=== PATIENT | female | born 1995 | race Caucasian/White ===

== ENCOUNTER 2021-05-06 13:18 | Inpatient (IN) ==
[2021-05-06] MEDS ORDERED: DINOPROSTONE 10 MG INSERT PV ONE (14:43)
[2021-05-06] MEDS ORDERED: OXYTOCIN 30 UNITS/500 ML BAG IV PRN (14:43)
[2021-05-06 15:11] LABS: Hematocrit (blood only) 35.6 % (37-47); Hemoglobin 11.9 g/dL (12.0-16.0); Mean Corpuscular Hemoglobin 29.7 pg (25-34); Mean Corpuscular Hgb Conc 33.4 g/dL (32-36); Mean Corpuscular Volume 88.8 fL (80-100); Mean Platelet Volume 10.8 fL (7.4-10.4); Platelet Count 264 K/uL (130-400); RDW Coefficient of Variation 14.8 % (11.5-14.5); RDW Standard Deviation 48.3 fL (36.4-46.3); Red Blood Count 4.01 M/uL (4.2-5.4); White Blood Count 13.81 K/uL (4.8-10.8)
[2021-05-06] MEDS ORDERED: LACTATED RINGER'S 1,000 ML IV ONE (15:31)
[2021-05-06 15:37] LABS: Albumin Level 2.9 gm/dl (3.4-5.0); BUN Creatinine Ratio 12.3 (10-20); Calcium 9.6 mg/dl (8.5-10.1); Creatinine Clr Calc Pharmacy 124.1 ml/min; Est GFR (African American) 121.6 ml/min; Est GFR (Non-African American) 104.9 ml/min
[2021-05-06 15:39] LABS: Albumin Globulin Ratio 0.7 (0.9-2); Bilirubin,Total 0.1 mg/dl (0.2-1); Globulin 4.1 gm/dl (2.5-4.0)
[2021-05-06 15:48] LABS: Amphetamines+Metham, Urine Neg (Neg); Barbiturates, Urine Neg (Neg); Benzodiazepine, Urine Neg (Neg); Cocaine, Urine Neg (Neg); MDMA (Ecstacy), Urine Neg (Neg); Methadone, Urine Neg (Neg); Opiate, Urine Neg (Neg); Phencyclidine, Urine Neg (Neg)
--- NOTE | 2021-05-06 15:53 | History & Physical Report ---
Date of Service May 06, 2021 Assessment & Plan (1) Post-term , 40-42 weeks of gestation: (2) Oligohydramnios: Plan: 25-year-old G1, P0 at 40 weeks and 4 days of gestation with oligohydramnios at term, vital signs stable afebrile, heart rate reassuring, GBS negative, Cervix unfavorable, History of drug use during , anxiety, Plan to admit, monitor, labs, cervical ripening with Cervidil, Discussed what to expect from induction of labor and all questions were answered. Admission and Anticipated Discharge Date Admission Date: May 06, 2021 History of Present Illness Chief Complaint: Sent from office Primary Care Provider: Kaden Jaquez MD Patient is a 25-year-old G1, P0 at 40 weeks and 4 days of gestation who was in the office for routine visit for MEGHAN and NST. NST was not meeting criteria for reactivity and she was sent for ultrasound for MEGHAN. it was 4.6 cm which is less than 5th percentile and she was sent here for induction of labor for postdates and oligohydramnios. Patient has no complaints. She denies contractions, leakage of fluid, vaginal bleeding, headaches, change in her vision, nausea vomiting, epigastric or right upper quadrant pain. She reports good movements. Her has been complicated by, 1 obesity during , 2 history of smoking in first trimester, quit completely in December, 3 history of drug use in first trimester, it was meth per patient and quit completely in December, 4 anxiety, on Zoloft GBS is negative, Her boyfriend was exposed to someone with positive COVID-19 test and patient had loss of taste yesterday but resolved today. She was not diagnosed with Covid, she has received 2 doses of vaccines. Allergies Allergy/AdvReac Type Severity Reaction Status Date / Time No Known Allergies Allergy Unverified 06/08/10 13:08 Home Medications Medication Instructions Recorded Confirmed Type ferrous sulfate 325 mg (65 mg 325 mg PO DAILY 05/06/21 05/06/21 History iron) tablet (Iron (ferrous sulfate)) prenat.vits,robert,[id number] 1 tab PO DAILY 05/06/21 05/06/21 History sertraline 50 mg tablet (Zoloft) 50 mg PO DAILY 05/06/21 05/06/21 History Patient History Medical History Anemia (~02/08/21) Anxiety Drug abuse during (~01/01/21) Pt. states she stopped drug use in December 2020. (Meth) Obesity Smoking Pt. states she stopped smiking in December 2020 UTI (urinary tract infection) during (~12/13/20) Surgical History H/O wisdom tooth extraction Family History Aunt Breast cancer Social History Smoking Status: Former smoker Age Started Using Tobacco: 22; Age Quit Using Tobacco: 25; Second Hand Exposure: No; Do You Dip or Chew Tobacco: No; Tobacco Cessation Education Requested by Patient: No Hx Alcohol Use: No Hx Substance Use: Yes Non-Prescribed Medications: Methamphetamines Last Used Substance Other:: 12-10-20 Preferred Language: Turkish Communication Ability: Effective Visual Impairment: No Limitations Hearing Ability: Normal Mitochondrial Disorders Counselor Required: No Beliefs That Will Affect Care: None marital status: Single Current Living Situation: Significant Other Current Living Situation Comment: Lives with boyfriend and cat current occupational status: employed current occupation: [employer] Other Information That Helps Us Care for You: No Feels Safe at Home: Yes Safety Concerns: Feels Safe At This Time caffeine: Yes (Coffee) Dental Care, Regularly: No Seatbelt Use: always Do you think of yourself as: straight/heterosexual Gender Identity: Female Assistive Devices: None [employer] History Remote history of chlamydia about 4 years ago, treated and test of cure was negative many times. No history of genital herpes, gonorrhea, trichomonas. Review of Systems as per Subjective / HPI Physical Exam Constitutional: WD/WN, vitals as above well developed, well nourished and + obese Comfortable not in acute distress Genitourinary: normal external appearance OB Exam Abdomen: + vertex Manual OB Exam: + cervical dilation 1 cm, + cervical effacement 50% and + station -2 OB Exam Monitor Tracing: + external uterine monitor used and + category I Results & Data ([facility]) Vital Signs (Past 12 Hours) Vital Signs Temp Pulse Resp BP 05/06/21 15:43 83 116/64 05/06/21 13:57 36.6 C 20 05/06/21 13:22 36.6 C 101 H 20 140/84 Laboratory Results Lab Results 05/06/21 05/06/21 05/06/21 Range/Units 14:30 14:55 15:02 WBC (4.8-10.8) K/uL RBC (4.2-5.4) M/uL Hgb (12.0-16.0) g/dL Hct (37-47) % MCV (80-100) fL MCH (25-34) pg MCHC (32-36) g/dL RDW Std Deviation (36.4-46.3) fL RDW Coeff of Humberto (11.5-14.5) % Plt Count (130-400) K/uL MPV (7.4-10.4) fL Sodium 138 (136-145) mmol/L Potassium 4.0 (3.5-5.1) mmol/L Chloride 108 H (98-107) mmol/L Carbon Dioxide 23 (21-32) mmol/L Anion Gap 6.0 (3-11) BUN 10 (7-18) mg/dl Creatinine 0.78 (0.6-1.2) mg/dl Est Cr Clr Drug Dosing 124.1 ml/min Est GFR ( Amer) 121.6 ml/min Est GFR (Non-Af Amer) 104.9 ml/min BUN/Creatinine Ratio 12.3 (10-20) Glucose 84 (70-99) mg/dl Calcium 9.6 (8.5-10.1) mg/dl Total Bilirubin 0.1 L (0.2-1) mg/dl AST 14 L (15-37) U/L ALT 21 (12-78) U/L Alkaline Phosphatase 232 H (45-117) U/L Total Protein 7.0 (6.4-8.2) gm/dl Albumin 2.9 L (3.4-5.0) gm/dl Globulin 4.1 H (2.5-4.0) gm/dl Albumin/Globulin Ratio 0.7 L (0.9-2) Urine Opiates Screen Neg (Neg) Ur Methadone, Qual Neg (Neg) Urine Barbiturates Neg (Neg) Ur Phencyclidine (PCP) Neg (Neg) U Amphetamin/Meth Scrn Neg (Neg) MDMA (Ecstasy) Screen Neg (Neg) U Benzodiazepines Scrn Neg (Neg) Ur Cocaine Metabolite Neg (Neg) U Marijuana (THC) Screen Neg (Neg) COVID-19 Eval Order Covid19 at [facility] 05/06/21 Range/Units 15:03 WBC 13.81 H (4.8-10.8) K/uL RBC 4.01 L (4.2-5.4) M/uL Hgb 11.9 L (12.0-16.0) g/dL Hct 35.6 L (37-47) % MCV 88.8 (80-100) fL MCH 29.7 (25-34) pg MCHC 33.4 (32-36) g/dL RDW Std Deviation 48.3 H (36.4-46.3) fL RDW Coeff of Humberto 14.8 H (11.5-14.5) % Plt Count 264 (130-400) K/uL MPV 10.8 H (7.4-10.4) fL Sodium (136-145) mmol/L Potassium (3.5-5.1) mmol/L Chloride (98-107) mmol/L Carbon Dioxide (21-32) mmol/L Anion Gap (3-11) BUN (7-18) mg/dl Creatinine (0.6-1.2) mg/dl Est Cr Clr Drug Dosing ml/min Est GFR ( Amer) ml/min Est GFR (Non-Af Amer) ml/min BUN/Creatinine Ratio (10-20) Glucose (70-99) mg/dl Calcium (8.5-10.1) mg/dl Total Bilirubin (0.2-1) mg/dl AST (15-37) U/L ALT (12-78) U/L Alkaline Phosphatase (45-117) U/L Total Protein (6.4-8.2) gm/dl Albumin (3.4-5.0) gm/dl Globulin (2.5-4.0) gm/dl Albumin/Globulin Ratio (0.9-2) Urine Opiates Screen (Neg) Ur Methadone, Qual (Neg) Urine Barbiturates (Neg) Ur Phencyclidine (PCP) (Neg) U Amphetamin/Meth Scrn (Neg) MDMA (Ecstasy) Screen (Neg) U Benzodiazepines Scrn (Neg) Ur Cocaine Metabolite (Neg) U Marijuana (THC) Screen (Neg) COVID-19 Eval Order
[2021-05-06] MEDS ORDERED: SERTRALINE HCL 50 MG TABLET PO SCH (16:00)
[2021-05-06] MEDS ORDERED: SERTRALINE HCL 50 MG TABLET PO ONE (16:15)
--- NOTE | 2021-05-06 16:22 | Obstetrical Progress Note ---
Date of Service May 06, 2021 Assessment & Plan Admission and Anticipated Discharge Date Admission Date: May 06, 2021 Subjective Cervidil is placed Bed side US: Vertex, MEGHAN 6.1 cm, FHR 140's Continue to monitor closely Results & Data ([facility]) Vital Signs (Past 12 Hours) Vital Signs Temp Pulse Resp BP 05/06/21 15:43 83 116/64 05/06/21 13:57 36.6 C 20 05/06/21 13:22 36.6 C 101 H 20 140/84
[2021-05-06] MEDS: LACTATED RINGER'S 1,000 ML IV PRN (16:34)
[2021-05-06] MEDS ORDERED: ACETAMINOPHEN 1000 MG/100 ML IV IV PRN (22:47)
[2021-05-06] MEDS ORDERED: BUTORPHANOL TARTRATE 1 MG/ML VIAL IV PRN (22:47)
--- NOTE | 2021-05-06 22:47 | Obstetrical Progress Note ---
Date of Service May 06, 2021 Assessment & Plan Admission and Anticipated Discharge Date Admission Date: May 06, 2021 Subjective Patient is reevaluated. She has been feeling crampy in lower abdomen. They are noticeable but not painful. No leakage of fluid or vaginal bleeding. She reports good movements. heart rate category 1, [place] mild irregular uterine activity. Abdomen soft nontender gravid [place] 7 to 8 pounds. Continue with cervical ripening, remove Cervidil at 4:15 AM and then let her eat and take shower and then make a plan. Continue to monitor. Results & Data ([facility]) Vital Signs (Past 12 Hours) Vital Signs Temp Pulse Resp BP 05/06/21 22:00 36.7 C 16 05/06/21 21:59 69 122/58 L 05/06/21 19:11 88 130/67 05/06/21 19:10 36.7 C 93 H 16 132/98 05/06/21 17:28 82 20 122/64 05/06/21 15:43 83 116/64 05/06/21 13:57 36.6 C 101 H 20 140/84 05/06/21 13:22 36.6 C 101 H 20 140/84
[2021-05-07] MEDS: LACTATED RINGER'S 1,000 ML IV PRN ×4 (01:15→11:00)
[2021-05-07] MEDS ORDERED: BUPIVACAINE 0.25% 30 ML VIAL ONE (02:33)
[2021-05-07] MEDS ORDERED: fentaNYL citrate 100 MCG/2 ML VIAL ONE (02:33)
[2021-05-07] MEDS ORDERED: ePHEDrine sulfate 50 MG/ML AMP ONE (02:33)
[2021-05-07] MEDS ORDERED: SODIUM CHLORIDE 0.9% INJ 10 ML VIAL ONE (02:33)
[2021-05-07] MEDS ORDERED: fentaNYL 2MCG/ML ROPIVACAINE 1.25MG/ML 100 ML BAG EPI ONE (02:34)
[2021-05-07] MEDS ORDERED: NALBUPHINE HCL INJ 10 MG/ML AMP IV PRN ×2 (03:05→19:21)
[2021-05-07] MEDS ORDERED: NALOXONE HCL 0.4 MG/1 ML VIAL/CARP IV PRN ×2 (03:05→19:21)
[2021-05-07] MEDS ORDERED: NALOXONE HCL 1 MG in SODIUM CHLORIDE 0.9% 1000ML 1,000 ML IV PRN ×2 (03:05→19:21)
[2021-05-07] MEDS ORDERED: ONDANSETRON INJ 2 MG/ML 2 ML VIAL IV PRN ×2 (03:05→19:21)
[2021-05-07] MEDS ORDERED: diphenhydrAMINE 50 MG/ML VIAL IV PRN ×2 (03:05→19:21)
[2021-05-07] MEDS ORDERED: ePHEDrine sulfate 50 MG/ML AMP IV PRN ×2 (03:05→19:21)
[2021-05-07] MEDS ORDERED: fentaNYL 2MCG/ML ROPIVACAINE 1.25MG/ML 100 ML BAG EPI PRN (03:05)
--- NOTE | 2021-05-07 03:09 | Anesthesiology Consultation ---
Date of Service May 07, 2021 Assessment & Plan Chart Review Chart Review: Patient NOT seen in Pre Admission Testing and Acceptable Risk for Labor Epidural Consults Requested none ASA ASA3 Proposed Anesthesia Anesthesia Type: Labor Epidural and CSE Risk / Benefits Reviewed With: PT / POA / Parent / Guardian, Accepts Plan and Informed Consent Obtained History Height/Weight Height: 5 ft 3 in Weight: 101.151 kg Allergies Allergy/AdvReac Type Severity Reaction Status Date / Time No Known Allergies Allergy Unverified 06/08/10 13:08 Medications Home Medications Medication Instructions Recorded Confirmed Last Taken ferrous sulfate 325 mg (65 mg 325 mg PO DAILY 05/06/21 05/06/21 05/05/21 08:00 iron) tablet (Iron (ferrous sulfate)) prenat.vits,robert,[id number]-[id number] 1 tab PO DAILY 05/06/21 05/06/21 05/05/21 08:00 sertraline 50 mg tablet (Zoloft) 50 mg PO DAILY 05/06/21 05/06/21 05/05/21 08:00 Active Medications Generic Name Dose Route Start Last Admin Trade Name Freq PRN Reason Stop Dose Admin Acetaminophen 1,000 mg 05/06/21 22:47 05/07/21 00:05 Acetaminophen 1000 Mg/100 Ml Iv IV 05/09/21 22:46 1,000 mg Q8 PRN Administration Pain Butorphanol Tartrate 1 mg 05/06/21 22:47 05/07/21 01:43 Butorphanol Tartrate 1 Mg/Ml Vial IV 06/05/21 22:46 1 mg Q3HWA PRN Administration Pain Lactated Ringer's 1,000 mls @ 150 mls/hr 05/06/21 14:43 05/07/21 03:06 Lr IV 05/08/21 14:42 999 mls/hr .[id number] PRN Administration L&D Protocol Protocol NPO Date Last Intake of Fluids: 05/07/21 Time Last Intake of Fluids: 02:00 Date Last Intake of Solids: 05/06/21 Time Last Intake of Solids: 14:00 Past Medical History Medical History Anemia (~02/08/21) Anxiety Drug abuse during (~01/01/21) Pt. states she stopped drug use in December 2020. (Meth) Obesity Smoking Pt. states she stopped smiking in December 2020 UTI (urinary tract infection) during (~12/13/20) Exercise / Class Metabolic Activity II 4-5 Yardwork/Stairs/Walk up hill Past Family History Family History Aunt Breast cancer Past Surgical History Surgical History H/O wisdom tooth extraction Past Anesthesia History No Hx of Anesthesia Complications and No Family Hx of Anesthesia Complications History of PONV No Hx of PONV and No Hx of Motion Sickness Social History Smoking Status: Former smoker Do You Dip or Chew Tobacco: No Hx Alcohol Use: No Hx Substance Use: Yes substance use type: methamphetamine Last Used Substance Other:: 12-10-20 Review of Systems no chest pain or sob Physical Exam Vital Signs Last Vital Signs Temp 36.7 C 05/06/21 22:00 Pulse 89 05/07/21 03:02 Resp 16 05/06/21 22:00 BP 125/79 05/07/21 01:53 Pulse Ox 99 05/07/21 03:02 ENMT Mouth: no TMJ abnormality Thyromental Distance: > or= 3.5 Finger Breadths Mallampati Class: II Neck normal visual inspection Respiratory normal respiratory effort Auscultation: lungs clear to auscultation bilaterally Cardiovascular Rate/Rhythm: regular rate and regular rhythm Musculoskeletal Spine: normal cervical ROM Neurologic moves all extremities Psychiatric Orientation: alert and oriented x 3 Testing Laboratory Results 05/06/21 15:03 05/06/21 15:02
[2021-05-07] MEDS ORDERED: OXYTOCIN 30 UNITS/500 ML BAG IV PRN (08:38)
--- NOTE | 2021-05-07 09:25 | Obstetrical Progress Note ---
Date of Service May 07, 2021 Assessment & Plan Admission and Anticipated Discharge Date Admission Date: May 06, 2021 Subjective Patient is reevaluated. She had hyperstimulation and Cervidil was removed. Received epidural for pain and now comfortable. Vaginal exam, cervix is 4 cm dilated, 80%, -2, central, AROM, small amount of clear fluid was obtained. heart rate category 1, contractions spaced out. Plan to start Pitocin per protocol and continue to monitor. All questions were answered. Results & Data ([facility]) Vital Signs (Past 12 Hours) Vital Signs Temp Pulse Resp BP Pulse Ox 05/07/21 09:21 91 H 91 05/07/21 09:17 94 H 99 05/07/21 09:13 102 H 143/72 H 05/07/21 09:12 105 H 95 05/07/21 09:07 78 98 05/07/21 09:02 80 98 05/07/21 08:58 79 102/57 L 05/07/21 08:57 81 98 05/07/21 08:52 113 H 97 05/07/21 08:47 86 97 05/07/21 08:43 86 93/52 L 05/07/21 08:42 88 97 05/07/21 08:37 87 98 05/07/21 08:32 87 98 05/07/21 08:29 90 135/59 L 05/07/21 08:27 89 98 05/07/21 08:22 89 99 05/07/21 08:17 87 98 05/07/21 08:13 85 112/60 05/07/21 08:12 86 98 05/07/21 08:07 87 98 05/07/21 08:02 89 98 05/07/21 07:58 89 115/60 05/07/21 07:57 90 97 05/07/21 07:52 90 99 05/07/21 07:47 89 98 05/07/21 07:44 87 110/53 L 05/07/21 07:42 97 H 98 05/07/21 07:37 85 99 05/07/21 07:32 95 H 98 05/07/21 07:28 85 133/74 05/07/21 07:27 97 H 98 05/07/21 07:22 96 H 98 05/07/21 07:17 89 98 05/07/21 07:14 86 140/78 11/02/21 07:12 36.8 C 89 18 98 05/07/21 07:07 36.7 C 103 H 18 98 05/07/21 07:02 93 H 98 05/07/21 06:59 83 119/57 L 05/07/21 06:57 91 H 100 05/07/21 06:52 90 99 05/07/21 06:47 88 100 05/07/21 06:43 85 126/57 L 05/07/21 06:42 89 99 05/07/21 06:37 90 99 05/07/21 06:32 92 H 100 05/07/21 06:29 84 118/62 05/07/21 06:27 91 H 99 05/07/21 06:22 90 100 05/07/21 06:17 89 99 05/07/21 06:13 96 H 134/71 05/07/21 06:12 104 H 99 05/07/21 06:07 82 98 05/07/21 06:02 87 98 05/07/21 05:58 82 128/64 05/07/21 05:57 85 98 05/07/21 05:52 87 98 05/07/21 05:47 87 100 05/07/21 05:43 83 129/69 05/07/21 05:42 82 99 05/07/21 05:37 89 99 05/07/21 05:32 86 99 05/07/21 05:29 96 H 137/74 05/07/21 05:27 85 99 05/07/21 05:22 87 98 05/07/21 05:17 89 99 05/07/21 05:13 88 129/65 05/07/21 05:12 87 99 05/07/21 05:07 85 100 05/07/21 05:02 84 100 05/07/21 04:59 85 129/67 05/07/21 04:57 85 99 05/07/21 04:52 88 100 05/07/21 04:47 105 H 99 05/07/21 04:44 73 100/44 L 05/07/21 04:42 77 100 05/07/21 04:37 82 99 05/07/21 04:32 79 99 05/07/21 04:28 79 110/56 L 05/07/21 04:27 78 99 05/07/21 04:22 79 100 05/07/21 04:17 79 100 05/07/21 04:13 80 116/55 L 05/07/21 04:12 95 H 100 05/07/21 04:07 80 98 05/07/21 04:02 80 98 05/07/21 04:00 36.7 C 18 05/07/21 03:57 93 H 98 05/07/21 03:53 86 114/54 L 05/07/21 03:52 83 98 05/07/21 03:47 81 97 05/07/21 03:42 83 112/56 L 98 05/07/21 03:40 92 H 114/54 L 05/07/21 03:38 103 H 112/56 L 05/07/21 03:37 112 H 100 05/07/21 03:36 93 H 108/59 L 05/07/21 03:34 84 103/55 L 05/07/21 03:32 90 97/55 L 98 05/07/21 03:31 77 96/54 L 05/07/21 03:30 73 85/44 L 05/07/21 03:29 71 93/46 L 05/07/21 03:28 71 85/42 L 05/07/21 03:27 70 97 05/07/21 03:26 95 H 96/50 L 05/07/21 03:25 71 107/54 L 05/07/21 03:24 69 109/56 L 05/07/21 03:22 76 130/70 98 05/07/21 03:20 82 132/73 05/07/21 03:18 75 132/74 05/07/21 03:17 81 90 05/07/21 03:14 80 137/77 05/07/21 03:13 89 144/82 H 05/07/21 03:12 95 H 98 05/07/21 03:09 85 137/78 05/07/21 03:07 91 H 98 05/07/21 03:02 89 99 05/07/21 03:00 36.7 C 24 05/07/21 02:59 85 93 05/07/21 02:57 87 98 05/07/21 02:52 80 100 05/07/21 02:47 84 96 05/07/21 02:42 79 96 05/07/21 02:38 83 94 05/07/21 02:37 80 99 05/07/21 02:32 86 99 05/07/21 02:31 98 H 94 05/07/21 02:27 82 95 05/07/21 02:22 72 96 05/07/21 02:17 83 98 05/07/21 02:12 81 97 05/07/21 02:07 75 96 05/07/21 02:06 84 93 05/07/21 02:02 75 95 05/07/21 01:57 80 94 05/07/21 01:53 85 125/79 05/07/21 01:52 77 94 05/07/21 00:15 71 118/54 L 05/06/21 22:00 36.7 C 16 05/06/21 21:59 69 122/58 L
--- NOTE | 2021-05-07 16:40 | Labor Progress Brief Note ---
Date of Service May 07, 2021 Assessment & Plan (1) Oligohydramnios: Plan: Pt fully dilated/+1 station started pushing and experienced decels into the 70 resuscitation including Pitocin d/c. IVH and rt side and nasal oxygen FHR returned to base line will allow passive descent . (2) Post-term , 40-42 weeks of gestation: Admission and Anticipated Discharge Date Admission Date: May 06, 2021 Results & Data ([facility]) Vital Signs (Past 12 Hours) Vital Signs Temp Pulse Resp BP Pulse Ox 05/07/21 16:32 145 H 98 05/07/21 16:28 150 H 120/58 L 92 05/07/21 16:27 92 H 97 05/07/21 16:22 93 H 100 05/07/21 16:17 94 H 98 05/07/21 16:14 86 142/72 H 05/07/21 16:12 93 H 100 05/07/21 16:07 86 98 05/07/21 16:04 94 H 92 05/07/21 16:02 92 H 99 05/07/21 15:59 89 141/75 H 05/07/21 15:58 36.8 C 18 05/07/21 15:57 90 99 05/07/21 15:52 96 H 96 05/07/21 15:47 79 97 05/07/21 15:43 87 111/54 L 05/07/21 15:42 89 96 05/07/21 15:37 82 98 05/07/21 15:32 95 H 96 05/07/21 15:29 85 111/55 L 05/07/21 15:27 84 97 05/07/21 15:22 89 98 05/07/21 15:17 90 98 05/07/21 15:13 83 117/58 L 05/07/21 15:12 87 98 05/07/21 15:07 83 97 05/07/21 15:02 93 H 99 05/07/21 14:59 82 114/56 L 05/07/21 14:57 84 97 05/07/21 14:52 88 97 05/07/21 14:47 88 98 05/07/21 14:43 80 123/74 05/07/21 14:42 82 98 05/07/21 14:37 87 98 05/07/21 14:32 106 H 98 05/07/21 14:29 86 136/70 05/07/21 14:27 89 97 05/07/21 14:22 96 H 99 05/07/21 14:17 101 H 98 05/07/21 14:13 83 131/67 05/07/21 14:12 82 99 05/07/21 14:07 102 H 99 05/07/21 14:02 85 98 05/07/21 13:59 90 134/70 05/07/21 13:58 36.9 C 18 05/07/21 13:57 88 98 05/07/21 13:52 99 H 98 05/07/21 13:50 94 H 92 05/07/21 13:47 89 98 05/07/21 13:43 90 113/58 L 05/07/21 13:42 90 98 05/07/21 13:39 109 H 93 05/07/21 13:37 88 97 05/07/21 13:32 88 97 05/07/21 13:29 86 124/64 05/07/21 13:27 88 97 05/07/21 13:22 86 97 05/07/21 13:17 92 H 97 05/07/21 13:14 88 130/64 05/07/21 13:12 90 97 05/07/21 13:07 90 97 05/07/21 13:02 90 96 05/07/21 12:59 90 128/65 05/07/21 12:57 89 97 05/07/21 12:52 90 97 05/07/21 12:47 91 H 97 05/07/21 12:43 92 H 126/61 05/07/21 12:42 92 H 97 05/07/21 12:37 91 H 97 05/07/21 12:32 89 97 05/07/21 12:28 115 H 130/62 05/07/21 12:27 90 97 05/07/21 12:22 91 H 97 05/07/21 12:17 91 H 98 05/07/21 12:14 90 130/57 L 05/07/21 12:12 85 97 05/07/21 12:07 90 97 05/07/21 12:04 101 H 94 05/07/21 12:02 81 97 05/07/21 12:01 36.8 C 18 05/07/21 11:58 86 101/59 L 05/07/21 11:57 83 97 05/07/21 11:52 83 97 05/07/21 11:47 81 96 05/07/21 11:43 85 100/58 L 05/07/21 11:42 83 97 05/07/21 11:37 76 97 05/07/21 11:32 82 97 05/07/21 11:29 78 103/59 L 05/07/21 11:27 81 97 05/07/21 11:22 81 98 05/07/21 11:17 77 97 05/07/21 11:13 82 126/59 L 05/07/21 11:12 74 98 05/07/21 11:07 82 97 05/07/21 11:02 82 98 05/07/21 10:58 83 123/67 05/07/21 10:57 87 99 05/07/21 10:52 89 99 05/07/21 10:47 88 99 05/07/21 10:44 82 107/55 L 05/07/21 10:42 88 98 05/07/21 10:37 83 98 05/07/21 10:32 82 98 05/07/21 10:28 81 107/55 L 05/07/21 10:27 85 98 05/07/21 10:22 83 97 05/07/21 10:17 80 98 05/07/21 10:14 80 105/52 L 05/07/21 10:12 83 99 05/07/21 10:07 90 99 05/07/21 10:02 85 99 05/07/21 09:59 36.9 C 82 18 108/57 L 05/07/21 09:57 106 H 97 05/07/21 09:52 87 98 05/07/21 09:47 88 98 05/07/21 09:43 81 132/66 05/07/21 09:42 92 H 99 05/07/21 09:37 94 H 98 05/07/21 09:32 90 98 05/07/21 09:28 90 126/62 05/07/21 09:27 86 98 05/07/21 09:22 83 97 05/07/21 09:21 91 H 91 05/07/21 09:17 94 H 99 05/07/21 09:13 102 H 143/72 H 05/07/21 09:12 105 H 95 05/07/21 09:07 78 98 05/07/21 09:02 80 98 05/07/21 08:58 79 102/57 L 05/07/21 08:57 81 98 05/07/21 08:52 113 H 97 05/07/21 08:47 86 97 05/07/21 08:43 86 93/52 L 05/07/21 08:42 88 97 05/07/21 08:37 87 98 05/07/21 08:32 87 98 05/07/21 08:29 90 135/59 L 05/07/21 08:27 89 98 05/07/21 08:22 89 99 05/07/21 08:17 87 98 05/07/21 08:13 85 112/60 05/07/21 08:12 86 98 05/07/21 08:07 87 98 05/07/21 08:02 89 98 05/07/21 07:58 89 115/60 05/07/21 07:57 90 97 05/07/21 07:52 90 99 05/07/21 07:47 89 98 05/07/21 07:44 87 110/53 L 05/07/21 07:42 97 H 98 05/07/21 07:37 85 99 05/07/21 07:32 95 H 98 05/07/21 07:28 85 133/74 05/07/21 07:27 97 H 98 05/07/21 07:22 96 H 98 05/07/21 07:17 89 98 05/07/21 07:14 86 140/78 05/07/21 07:12 36.8 C 89 18 98 05/07/21 07:07 36.7 C 103 H 18 98 05/07/21 07:02 93 H 98 05/07/21 06:59 83 119/57 L 05/07/21 06:57 91 H 100 05/07/21 06:52 90 99 05/07/21 06:47 88 100 05/07/21 06:43 85 126/57 L 05/07/21 06:42 89 99 05/07/21 06:37 90 99 05/07/21 06:32 92 H 100 05/07/21 06:29 84 118/62 05/07/21 06:27 91 H 99 05/07/21 06:22 90 100 05/07/21 06:17 89 99 05/07/21 06:13 96 H 134/71 05/07/21 06:12 104 H 99 05/07/21 06:07 82 98 05/07/21 06:02 87 98 05/07/21 05:58 82 128/64 05/07/21 05:57 85 98 05/07/21 05:52 87 98 05/07/21 05:47 87 100 05/07/21 05:43 83 129/69 05/07/21 05:42 82 99 05/07/21 05:37 89 99 05/07/21 05:32 86 99 05/07/21 05:29 96 H 137/74 05/07/21 05:27 85 99 05/07/21 05:22 87 98 05/07/21 05:17 89 99 05/07/21 05:13 88 129/65 05/07/21 05:12 87 99 05/07/21 05:07 85 100 05/07/21 05:02 84 100 05/07/21 04:59 85 129/67 05/07/21 04:57 85 99 05/07/21 04:52 88 100 05/07/21 04:47 105 H 99 05/07/21 04:44 73 100/44 L 05/07/21 04:42 77 100
--- NOTE | 2021-05-07 18:13 | Labor Progress Brief Note ---
Date of Service May 07, 2021 Assessment & Plan (1) Oligohydramnios: Plan: Pt reevaluated late decels with pushing tachycardia persist No change in station with pushing discussed above finding with pt Recommend c/sec pt is agreeable to c/sec Admission and Anticipated Discharge Date Admission Date: May 06, 2021 Results & Data ([facility]) Vital Signs (Past 12 Hours) Vital Signs Temp Pulse Resp BP Pulse Ox 05/07/21 18:07 84 98 05/07/21 18:02 99 H 99 05/07/21 18:00 109 H 156/119 H 05/07/21 17:59 84 86 L 05/07/21 17:57 82 99 05/07/21 17:53 94 H 89 L 05/07/21 17:52 93 H 98 05/07/21 17:47 88 97 05/07/21 17:43 83 122/56 L 05/07/21 17:42 91 H 98 05/07/21 17:37 84 96 05/07/21 17:35 36.9 C 18 05/07/21 17:32 94 H 99 05/07/21 17:28 83 137/63 05/07/21 17:27 88 99 05/07/21 17:22 86 97 05/07/21 17:17 90 97 05/07/21 17:14 88 130/71 05/07/21 17:12 82 100 05/07/21 17:07 84 100 05/07/21 17:02 90 100 05/07/21 16:58 86 127/69 05/07/21 16:57 85 100 05/07/21 16:52 88 100 05/07/21 16:47 90 100 05/07/21 16:43 90 133/77 05/07/21 16:42 89 100 05/07/21 16:37 87 100 05/07/21 16:32 145 H 98 05/07/21 16:28 150 H 120/58 L 92 05/07/21 16:27 92 H 97 05/07/21 16:22 93 H 100 05/07/21 16:17 94 H 98 05/07/21 16:14 86 142/72 H 05/07/21 16:12 93 H 100 05/07/21 16:07 86 98 05/07/21 16:04 94 H 92 05/07/21 16:02 92 H 99 05/07/21 15:59 89 141/75 H 05/07/21 15:58 36.8 C 18 05/07/21 15:57 90 99 05/07/21 15:52 96 H 96 05/07/21 15:47 79 97 05/07/21 15:43 87 111/54 L 05/07/21 15:42 89 96 05/07/21 15:37 82 98 05/07/21 15:32 95 H 96 05/07/21 15:29 85 111/55 L 05/07/21 15:27 84 97 05/07/21 15:22 89 98 05/07/21 15:17 90 98 05/07/21 15:13 83 117/58 L 05/07/21 15:12 87 98 05/07/21 15:07 83 97 05/07/21 15:02 93 H 99 05/07/21 14:59 82 114/56 L 05/07/21 14:57 84 97 05/07/21 14:52 88 97 05/07/21 14:47 88 98 05/07/21 14:43 80 123/74 05/07/21 14:42 82 98 05/07/21 14:37 87 98 05/07/21 14:32 106 H 98 05/07/21 14:29 86 136/70 05/07/21 14:27 89 97 05/07/21 14:22 96 H 99 05/07/21 14:17 101 H 98 05/07/21 14:13 83 131/67 05/07/21 14:12 82 99 05/07/21 14:07 102 H 99 05/07/21 14:02 85 98 05/07/21 13:59 90 134/70 05/07/21 13:58 36.9 C 18 05/07/21 13:57 88 98 05/07/21 13:52 99 H 98 05/07/21 13:50 94 H 92 05/07/21 13:47 89 98 05/07/21 13:43 90 113/58 L 05/07/21 13:42 90 98 05/07/21 13:39 109 H 93 05/07/21 13:37 88 97 05/07/21 13:32 88 97 05/07/21 13:29 86 124/64 05/07/21 13:27 88 97 05/07/21 13:22 86 97 05/07/21 13:17 92 H 97 05/07/21 13:14 88 130/64 05/07/21 13:12 90 97 05/07/21 13:07 90 97 05/07/21 13:02 90 96 05/07/21 12:59 90 128/65 05/07/21 12:57 89 97 05/07/21 12:52 90 97 05/07/21 12:47 91 H 97 05/07/21 12:43 92 H 126/61 05/07/21 12:42 92 H 97 05/07/21 12:37 91 H 97 05/07/21 12:32 89 97 05/07/21 12:28 115 H 130/62 05/07/21 12:27 90 97 05/07/21 12:22 91 H 97 05/07/21 12:17 91 H 98 05/07/21 12:14 90 130/57 L 05/07/21 12:12 85 97 05/07/21 12:07 90 97 05/07/21 12:04 101 H 94 05/07/21 12:02 81 97 05/07/21 12:01 36.8 C 18 05/07/21 11:58 86 101/59 L 05/07/21 11:57 83 97 05/07/21 11:52 83 97 05/07/21 11:47 81 96 05/07/21 11:43 85 100/58 L 05/07/21 11:42 83 97 05/07/21 11:37 76 97 05/07/21 11:32 82 97 05/07/21 11:29 78 103/59 L 05/07/21 11:27 81 97 05/07/21 11:22 81 98 05/07/21 11:17 77 97 05/07/21 11:13 82 126/59 L 05/07/21 11:12 74 98 05/07/21 11:07 82 97 05/07/21 11:02 82 98 05/07/21 10:58 83 123/67 05/07/21 10:57 87 99 05/07/21 10:52 89 99 05/07/21 10:47 88 99 05/07/21 10:44 82 107/55 L 05/07/21 10:42 88 98 05/07/21 10:37 83 98 05/07/21 10:32 82 98 05/07/21 10:28 81 107/55 L 05/07/21 10:27 85 98 05/07/21 10:22 83 97 05/07/21 10:17 80 98 05/07/21 10:14 80 105/52 L 05/07/21 10:12 83 99 05/07/21 10:07 90 99 05/07/21 10:02 85 99 05/07/21 09:59 36.9 C 82 18 108/57 L 05/07/21 09:57 106 H 97 05/07/21 09:52 87 98 05/07/21 09:47 88 98 05/07/21 09:43 81 132/66 05/07/21 09:42 92 H 99 05/07/21 09:37 94 H 98 05/07/21 09:32 90 98 05/07/21 09:28 90 126/62 05/07/21 09:27 86 98 05/07/21 09:22 83 97 05/07/21 09:21 91 H 91 05/07/21 09:17 94 H 99 05/07/21 09:13 102 H 143/72 H 05/07/21 09:12 105 H 95 05/07/21 09:07 78 98 05/07/21 09:02 80 98 05/07/21 08:58 79 102/57 L 05/07/21 08:57 81 98 05/07/21 08:52 113 H 97 05/07/21 08:47 86 97 05/07/21 08:43 86 93/52 L 05/07/21 08:42 88 97 05/07/21 08:37 87 98 05/07/21 08:32 87 98 05/07/21 08:29 90 135/59 L 05/07/21 08:27 89 98 05/07/21 08:22 89 99 05/07/21 08:17 87 98 05/07/21 08:13 85 112/60 05/07/21 08:12 86 98 05/07/21 08:07 87 98 05/07/21 08:02 89 98 05/07/21 07:58 89 115/60 05/07/21 07:57 90 97 05/07/21 07:52 90 99 05/07/21 07:47 89 98 05/07/21 07:44 87 110/53 L 05/07/21 07:42 97 H 98 05/07/21 07:37 85 99 05/07/21 07:32 95 H 98 05/07/21 07:28 85 133/74 05/07/21 07:27 97 H 98 05/07/21 07:22 96 H 98 05/07/21 07:17 89 98 05/07/21 07:14 86 140/78 05/07/21 07:12 36.8 C 89 18 98 05/07/21 07:07 36.7 C 103 H 18 98 05/07/21 07:02 93 H 98 05/07/21 06:59 83 119/57 L 05/07/21 06:57 91 H 100 05/07/21 06:52 90 99 05/07/21 06:47 88 100 05/07/21 06:43 85 126/57 L 05/07/21 06:42 89 99 05/07/21 06:37 90 99 05/07/21 06:32 92 H 100 05/07/21 06:29 84 118/62 05/07/21 06:27 91 H 99 05/07/21 06:22 90 100 05/07/21 06:17 89 99 05/07/21 06:13 96 H 134/71 05/07/21 06:12 104 H 99
--- NOTE | 2021-05-07 18:18 | History & Physical Bridge Note ---
Date of Service May 07, 2021 History & Physical Bridge Note I have examined the patient, reviewed the History & Physical and in the interval since the performance of the History & Physical I have noted the following changes of clinical significance: no changes noted
[2021-05-07] MEDS ORDERED: CITRIC ACID/SODIUM CITRATE 15 ML UDC ONE (18:21)
[2021-05-07] MEDS ORDERED: LACTATED RINGER'S 1,000 ML IV SCH ×3 (18:30→20:15)
[2021-05-07] MEDS ORDERED: ceFAZolin 2000MG 2,000 MG/15 ML SYR IV STA (18:32)
[2021-05-07] MEDS ORDERED: CITRIC ACID/SODIUM CITRATE 15 ML UDC PO STA (18:33)
[2021-05-07] MEDS ORDERED: MoRPHine SULFATE PF 1 MG/ML 10 ML AMP/VIAL ONE (19:13)
[2021-05-07] MEDS ORDERED: OXYTOCIN 10 UNITS/ML VIAL ONE (19:14)
[2021-05-07] MEDS ORDERED: MoRPHine SULFATE PF 1 MG/ML 10 ML AMP/VIAL INT SPINAL ONE (19:21)
[2021-05-07] MEDS ORDERED: HYDROmorphone INJ 0.5 MG/0.5 ML SYR IV PRN (19:21)
[2021-05-07] MEDS ORDERED: MEPERIDINE HCL 25 MG/ML CARP/VIAL IV PRN (19:21)
[2021-05-07] MEDS ORDERED: KETOROLAC 30 MG/ML VIAL IV PRN (19:21)
[2021-05-07] MEDS ORDERED: METOCLOPRAMIDE HCL 10 MG in SODIUM CHLORIDE 0.9% 50 ML IV PRN (19:21)
[2021-05-07] MEDS ORDERED: LACTATED RINGER'S 500 ML IV PRN (19:21)
[2021-05-07] MEDS ORDERED: PROMETHAZINE HCL 12.5 MG in SODIUM CHLORIDE 0.9% 50 ML IV PRN (19:21)
[2021-05-07] MEDS ORDERED: NALOXONE HCL 0.08 MG in SYRINGE 1.8 ML IV PRN (19:21)
[2021-05-07] MEDS ORDERED: MoRPHine SULFATE 2 MG/ML CARP IV PRN (19:21)
[2021-05-07] MEDS ORDERED: SODIUM CHLORIDE 0.9% 1000ML 1,000 ML IV SCH (19:30)
[2021-05-07] MEDS ORDERED: NO NARCOTICS OR SEDATIVES SCH (19:30)
[2021-05-07] MEDS ORDERED: DC INTRASPINAL MORPHINE SCH (19:30)
[2021-05-07 19:41] LABS: Base Excess Cord Arterial Bld -3.8 mEq/L (-9-1.8); CO2 Cord Arterial Blood 60 mmHg (39.1-73.5); HCO3 Cord Arterial Blood 25 mmol/L (19.7-28.5); pH Cord Arterial Blood 7.24 (7.1-7.38)
[2021-05-07 19:44] LABS: Base Excess Cord Venous Blood -2.4 mEq/L (-7.7-1.9); Cord Venous Blood HCO3 23 mmol/L (18.4-26.8); Cord Venous Blood PCO2 44 mmHg (30.4-57.2); Cord Venous Blood PO2 20 mmHg (14.1-43.3); Cord Venous Blood pH 7.34 (7.20-7.44); O2 Saturation Cord Venous Bld < 60.0 % (<68)
[2021-05-07 19:49] LABS: Oxygen Sat Cord Arterial Blood < 60.0 % (<60)
[2021-05-07 19:51] LABS: PO2 Cord Arterial Blood < 10 mmHg (4.1-31.7)
[2021-05-07] MEDS ORDERED: miSOPROStoL 100 MCG TAB ONE (19:51)
[2021-05-07] MEDS ORDERED: LIDOCAINE 2%/EPINEPHRINE 1:200,000 20 ML SDV ONE (19:59)
[2021-05-07] MEDS ORDERED: MAGNESIUM HYDROXIDE SUSP 30 ML UDC PO PRN (20:14)
[2021-05-07] MEDS ORDERED: SENNA 8.6 MG TAB PO PRN (20:14)
[2021-05-07] MEDS ORDERED: SUPERCREAM 0.870% 15 GM JAR EXT PRN (20:14)
[2021-05-07] MEDS ORDERED: BENZOCAINE 20% AER SPR 82.5 GM CAN EXT PRN (20:14)
[2021-05-07] MEDS ORDERED: DIPHTHERIA/TETANUS/PERTUSSIS 0.5 ML SYR/VIAL IM ONE (20:14)
[2021-05-07] MEDS ORDERED: HYDROCORTISONE ACETATE 25 MG SUPP PR PRN (20:14)
[2021-05-07] MEDS: OXYTOCIN 20 UNITS in LACTATED RINGER'S 1,000 ML IV SCH (20:56)
[2021-05-07] MEDS: DOCUSATE SODIUM 100 MG CAP PO SCH (22:39)
[2021-05-07] MEDS: SIMETHICONE 80 MG CHEW PO SCH (22:39)
--- NOTE | 2021-05-07 23:21 | Anesthesia Procedure Note ---
Date of Service May 07, 2021 Anesthesia Post Epidural Note Vital Signs Vital Signs: Temp Pulse Resp BP Pulse Ox 37.3 C 86 18 140/82 98 05/07/21 22:30 05/07/21 22:30 05/07/21 22:30 05/07/21 22:30 05/07/21 22:30 Pain Intensity Right Lower Abdomen: Pain Intensity: 7 Lower Abdomen: Pain Intensity: 2 Notes Mental Status: alert / awake / arousable Nausea / Vomiting: adequately controlled Pain: adequately controlled Airway Patency, RR, SpO2: stable & adequate BP & HR: stable & adequate Hydration State: stable & adequate Neuraxial Anesthesia: was administered and sensory block is resolving Anesthetic Complications: no major complications apparent and Pt Satisfied with anesthetic care Epidural: Removed without complications and With tip intact
--- NOTE | 2021-05-07 23:21 | Anesthesiology Progress Note ---
Date of Service May 07, 2021 Anesthesia Post Procedure Vital Signs Vital Signs: Temp Pulse Pulse Resp BP BP Pulse Ox 05/07/21 22:30 37.3 C 86 18 140/82 98 05/07/21 22:24 93 H 98 05/07/21 22:19 93 H 97 05/07/21 22:16 90 115/72 05/07/21 22:14 92 H 97 05/07/21 22:09 94 H 97 05/07/21 22:06 106 H 98/56 L 05/07/21 22:05 20 05/07/21 22:04 91 H 96 05/07/21 21:59 91 H 96 05/07/21 21:56 101 H 111/58 L 05/07/21 21:54 94 H 96 05/07/21 21:49 99 H 95 05/07/21 21:46 93 H 112/54 L 05/07/21 21:44 88 95 05/07/21 21:39 92 H 96 05/07/21 21:37 94 H 113/53 L 05/07/21 21:35 20 05/07/21 21:34 100 H 96 05/07/21 21:29 98 H 96 05/07/21 21:24 93 H 96 05/07/21 21:19 107 H 96 05/07/21 21:14 101 H 96 05/07/21 21:09 93 H 96 05/07/21 21:06 94 H 137/63 05/07/21 21:05 20 05/07/21 21:04 95 H 95 05/07/21 20:59 94 H 97 05/07/21 20:56 89 140/70 05/07/21 20:55 20 05/07/21 20:54 94 H 97 05/07/21 20:49 89 98 05/07/21 20:46 86 136/65 05/07/21 20:45 18 05/07/21 20:44 96 H 98 05/07/21 20:39 95 H 98 05/07/21 20:36 100 H 129/62 05/07/21 20:35 20 05/07/21 20:34 101 H 96 05/07/21 20:29 94 H 98 05/07/21 20:26 97 H 125/60 05/07/21 20:25 20 05/07/21 20:24 96 H 100 05/07/21 20:19 95 H 100 05/07/21 20:16 99 H 127/59 L 05/07/21 20:15 20 05/07/21 20:14 100 H 95 05/07/21 20:09 90 97 05/07/21 20:05 37.0 C 89 18 131/62 05/07/21 20:04 85 95 05/07/21 18:39 89 138/74 05/07/21 18:28 97 H 138/73 05/07/21 18:22 89 100 05/07/21 18:17 89 100 05/07/21 18:13 81 135/63 05/07/21 18:12 86 100 05/07/21 18:07 84 98 05/07/21 18:02 99 H 99 05/07/21 18:00 109 H 156/119 H 05/07/21 17:59 84 86 L 05/07/21 17:57 82 99 05/07/21 17:53 94 H 89 L 05/07/21 17:52 93 H 98 05/07/21 17:47 88 97 05/07/21 17:43 83 122/56 L 05/07/21 17:42 91 H 98 05/07/21 17:37 84 96 05/07/21 17:35 36.9 C 18 05/07/21 17:32 94 H 99 05/07/21 17:28 83 137/63 05/07/21 17:27 88 99 05/07/21 17:22 86 97 05/07/21 17:17 90 97 05/07/21 17:14 88 130/71 05/07/21 17:12 82 100 05/07/21 17:07 84 100 05/07/21 17:02 90 100 05/07/21 16:58 86 127/69 05/07/21 16:57 85 100 05/07/21 16:52 88 100 05/07/21 16:47 90 100 05/07/21 16:43 90 133/77 05/07/21 16:42 89 100 05/07/21 16:37 87 100 05/07/21 16:32 145 H 98 05/07/21 16:28 150 H 120/58 L 92 05/07/21 16:27 92 H 97 05/07/21 16:22 93 H 100 05/07/21 16:17 94 H 98 05/07/21 16:14 86 142/72 H 05/07/21 16:12 93 H 100 05/07/21 16:07 86 98 05/07/21 16:04 94 H 92 05/07/21 16:02 92 H 99 05/07/21 15:59 89 141/75 H 05/07/21 15:58 36.8 C 18 05/07/21 15:57 90 99 05/07/21 15:52 96 H 96 05/07/21 15:47 79 97 05/07/21 15:43 87 111/54 L 05/07/21 15:42 89 96 05/07/21 15:37 82 98 05/07/21 15:32 95 H 96 05/07/21 15:29 85 111/55 L 05/07/21 15:27 84 97 05/07/21 15:22 89 98 05/07/21 15:17 90 98 05/07/21 15:13 83 117/58 L 05/07/21 15:12 87 98 05/07/21 15:07 83 97 05/07/21 15:02 93 H 99 05/07/21 14:59 82 114/56 L 05/07/21 14:57 84 97 05/07/21 14:52 88 97 05/07/21 14:47 88 98 05/07/21 14:43 80 123/74 05/07/21 14:42 82 98 05/07/21 14:37 87 98 05/07/21 14:32 106 H 98 05/07/21 14:29 86 136/70 05/07/21 14:27 89 97 05/07/21 14:22 96 H 99 05/07/21 14:17 101 H 98 05/07/21 14:13 83 131/67 05/07/21 14:12 82 99 05/07/21 14:07 102 H 99 05/07/21 14:02 85 98 05/07/21 13:59 90 134/70 05/07/21 13:58 36.9 C 18 05/07/21 13:57 88 98 05/07/21 13:52 99 H 98 05/07/21 13:50 94 H 92 05/07/21 13:47 89 98 05/07/21 13:43 90 113/58 L 05/07/21 13:42 90 98 05/07/21 13:39 109 H 93 05/07/21 13:37 88 97 05/07/21 13:32 88 97 05/07/21 13:29 86 124/64 05/07/21 13:27 88 97 05/07/21 13:22 86 97 05/07/21 13:17 92 H 97 05/07/21 13:14 88 130/64 05/07/21 13:12 90 97 05/07/21 13:07 90 97 05/07/21 13:02 90 96 05/07/21 12:59 90 128/65 05/07/21 12:57 89 97 05/07/21 12:52 90 97 05/07/21 12:47 91 H 97 05/07/21 12:43 92 H 126/61 05/07/21 12:42 92 H 97 05/07/21 12:37 91 H 97 05/07/21 12:32 89 97 05/07/21 12:28 115 H 130/62 05/07/21 12:27 90 97 05/07/21 12:22 91 H 97 05/07/21 12:17 91 H 98 05/07/21 12:14 90 130/57 L 05/07/21 12:12 85 97 05/07/21 12:07 90 97 05/07/21 12:04 101 H 94 05/07/21 12:02 81 97 05/07/21 12:01 36.8 C 18 05/07/21 11:58 86 101/59 L 05/07/21 11:57 83 97 05/07/21 11:52 83 97 05/07/21 11:47 81 96 05/07/21 11:43 85 100/58 L 05/07/21 11:42 83 97 05/07/21 11:37 76 97 05/07/21 11:32 82 97 05/07/21 11:29 78 103/59 L 05/07/21 11:27 81 97 05/07/21 11:22 81 98 05/07/21 11:17 77 97 05/07/21 11:13 82 126/59 L 05/07/21 11:12 74 98 05/07/21 11:07 82 97 05/07/21 11:02 82 98 05/07/21 10:58 83 123/67 05/07/21 10:57 87 99 05/07/21 10:52 89 99 05/07/21 10:47 88 99 05/07/21 10:44 82 107/55 L 05/07/21 10:42 88 98 05/07/21 10:37 83 98 05/07/21 10:32 82 98 05/07/21 10:28 81 107/55 L 05/07/21 10:27 85 98 05/07/21 10:22 83 97 05/07/21 10:17 80 98 05/07/21 10:14 80 105/52 L 05/07/21 10:12 83 99 05/07/21 10:07 90 99 05/07/21 10:02 85 99 05/07/21 09:59 36.9 C 82 18 108/57 L 05/07/21 09:57 106 H 97 05/07/21 09:52 87 98 05/07/21 09:47 88 98 05/07/21 09:43 81 132/66 05/07/21 09:42 92 H 99 05/07/21 09:37 94 H 98 05/07/21 09:32 90 98 05/07/21 09:28 90 126/62 05/07/21 09:27 86 98 05/07/21 09:22 83 97 05/07/21 09:21 91 H 91 05/07/21 09:17 94 H 99 05/07/21 09:13 102 H 143/72 H 05/07/21 09:12 105 H 95 05/07/21 09:07 78 98 05/07/21 09:02 80 98 05/07/21 08:58 79 102/57 L 05/07/21 08:57 81 98 05/07/21 08:52 113 H 97 05/07/21 08:47 86 97 05/07/21 08:43 86 93/52 L 05/07/21 08:42 88 97 05/07/21 08:37 87 98 05/07/21 08:32 87 98 05/07/21 08:29 90 135/59 L 05/07/21 08:27 89 98 05/07/21 08:22 89 99 05/07/21 08:17 87 98 05/07/21 08:13 85 112/60 05/07/21 08:12 86 98 05/07/21 08:07 87 98 05/07/21 08:02 89 98 05/07/21 07:58 89 115/60 05/07/21 07:57 90 97 05/07/21 07:52 90 99 05/07/21 07:47 89 98 05/07/21 07:44 87 110/53 L 05/07/21 07:42 97 H 98 05/07/21 07:37 85 99 05/07/21 07:32 95 H 98 05/07/21 07:28 85 133/74 05/07/21 07:27 97 H 98 05/07/21 07:22 96 H 98 05/07/21 07:17 89 98 05/07/21 07:14 86 140/78 05/07/21 07:12 36.8 C 89 18 98 05/07/21 07:07 36.7 C 103 H 18 98 05/07/21 07:02 93 H 98 05/07/21 06:59 83 119/57 L 05/07/21 06:57 91 H 100 05/07/21 06:52 90 99 05/07/21 06:47 88 100 05/07/21 06:43 85 126/57 L 05/07/21 06:42 89 99 05/07/21 06:37 90 99 05/07/21 06:32 92 H 100 05/07/21 06:29 84 118/62 05/07/21 06:27 91 H 99 05/07/21 06:22 90 100 05/07/21 06:17 89 99 05/07/21 06:13 96 H 134/71 05/07/21 06:12 104 H 99 05/07/21 06:07 82 98 05/07/21 06:02 87 98 05/07/21 05:58 82 128/64 05/07/21 05:57 85 98 05/07/21 05:52 87 98 05/07/21 05:47 87 100 05/07/21 05:43 83 129/69 05/07/21 05:42 82 99 05/07/21 05:37 89 99 05/07/21 05:32 86 99 05/07/21 05:29 96 H 137/74 05/07/21 05:27 85 99 05/07/21 05:22 87 98 05/07/21 05:17 89 99 05/07/21 05:13 88 129/65 05/07/21 05:12 87 99 05/07/21 05:07 85 100 05/07/21 05:02 84 100 05/07/21 04:59 85 129/67 05/07/21 04:57 85 99 05/07/21 04:52 88 100 05/07/21 04:47 105 H 99 05/07/21 04:44 73 100/44 L 05/07/21 04:42 77 100 05/07/21 04:37 82 99 05/07/21 04:32 79 99 05/07/21 04:28 79 110/56 L 05/07/21 04:27 78 99 05/07/21 04:22 79 100 05/07/21 04:17 79 100 05/07/21 04:13 80 116/55 L 05/07/21 04:12 95 H 100 05/07/21 04:07 80 98 05/07/21 04:02 80 98 05/07/21 04:00 36.7 C 18 05/07/21 03:57 93 H 98 05/07/21 03:53 86 114/54 L 05/07/21 03:52 83 98 05/07/21 03:47 81 97 05/07/21 03:42 83 112/56 L 98 05/07/21 03:40 92 H 114/54 L 05/07/21 03:38 103 H 112/56 L 05/07/21 03:37 112 H 100 05/07/21 03:36 93 H 108/59 L 05/07/21 03:34 84 103/55 L 05/07/21 03:32 90 97/55 L 98 05/07/21 03:31 77 96/54 L 05/07/21 03:30 73 85/44 L 05/07/21 03:29 71 93/46 L 05/07/21 03:28 71 85/42 L 05/07/21 03:27 70 97 05/07/21 03:26 95 H 96/50 L 05/07/21 03:25 71 107/54 L 05/07/21 03:24 69 109/56 L 05/07/21 03:22 76 130/70 98 05/07/21 03:20 82 132/73 05/07/21 03:18 75 132/74 05/07/21 03:17 81 90 05/07/21 03:14 80 137/77 05/07/21 03:13 89 144/82 H 05/07/21 03:12 95 H 98 05/07/21 03:09 85 137/78 05/07/21 03:07 91 H 98 05/07/21 03:02 89 99 05/07/21 03:00 36.7 C 24 05/07/21 02:59 85 93 05/07/21 02:57 87 98 05/07/21 02:52 80 100 05/07/21 02:47 84 96 05/07/21 02:42 79 96 05/07/21 02:38 83 94 05/07/21 02:37 80 99 05/07/21 02:32 86 99 05/07/21 02:31 98 H 94 05/07/21 02:27 82 95 05/07/21 02:22 72 96 05/07/21 02:17 83 98 05/07/21 02:12 81 97 05/07/21 02:07 75 96 05/07/21 02:06 84 93 05/07/21 02:02 75 95 05/07/21 01:57 80 94 05/07/21 01:53 85 125/79 05/07/21 01:52 77 94 05/07/21 00:15 71 118/54 L Pain Intensity Right Lower Abdomen: Pain Intensity: 7 Lower Abdomen: Pain Intensity: 2 Transfer of Care Handoff Completed per policy Notes Mental Status: alert / awake / arousable and participated in evaluation Patient Amnestic to Procedure: Yes Nausea / Vomiting: adequately controlled Pain: adequately controlled Airway Patency, RR, SpO2: stable & adequate BP & HR: stable & adequate Hydration State: stable & adequate Neuraxial Anesthesia: was administered and sensory block is resolving Anesthetic Complications: no major complications apparent
[2021-05-08] MEDS: OXYTOCIN 20 UNITS in LACTATED RINGER'S 1,000 ML IV SCH (05:10)
[2021-05-08 06:59] LABS: Basophils # (auto) 0.03 K/uL (0-0.2); Basophils % (auto) 0.1 %; Eosinophils # (auto) 0.03 K/uL (0-0.5); Eosinophils % (auto) 0.1 %; Hematocrit (blood only) 30.9 % (37-47); Hemoglobin 10.1 g/dL (12.0-16.0); Immature Granulocytes # (auto) 0.08 K/uL (0.00-0.02); Immature Granulocytes % (auto) 0.4 %; Lymphocytes # (auto) 2.64 K/uL (1.2-3.4); Lymphocytes % (auto) 12.3 %; Mean Corpuscular Hemoglobin 29.8 pg (25-34); Mean Corpuscular Hgb Conc 32.7 g/dL (32-36); Mean Corpuscular Volume 91.2 fL (80-100); Mean Platelet Volume 10.8 fL (7.4-10.4); Monocytes # (auto) 1.87 K/uL (0.11-0.59); Monocytes % (auto) 8.7 %; Neutrophils % (auto) 78.4 %; Platelet Count 220 K/uL (130-400); RDW Coefficient of Variation 15.2 % (11.5-14.5); RDW Standard Deviation 50.4 fL (36.4-46.3); Red Blood Count 3.39 M/uL (4.2-5.4); White Blood Count 21.45 K/uL (4.8-10.8)
--- NOTE | 2021-05-08 08:01 | Operative Report (OR) ---
This is a section note. INDICATION FOR SURGERY: This is a 25-year-old G1, P0 who was admitted to labor and delivery on 05/06/2021 for oligohydramnios. The patient was seen in the office as part of routine care. She was 40 weeks and 4 days and was sent to labor and delivery after amniotic fluid check in the office showed MEGHAN of 4.0. She received cervical ripening and this morning underwent artificial rupture of membranes. The patient went on to be dilated to 10 cm. Once the patient started pushing, there were late decelerations and tachycardia. The patient was resuscitated and after two attempts at pushing, the tachycardia and decelerations persisted. Decision was therefore made to perform a section. PREOPERATIVE DIAGNOSES: 1. at term. 2. Category 3 strip. 3. tachycardia. 4. Oligohydramnios. POSTOPERATIVE DIAGNOSES: 1. at term. 2. Category 3 strip. 3. tachycardia. 4. Oligohydramnios. SURGEON: Iraj Nixon MD MAGNETIC OBSERVER: Terri Munson RN ESTIMATED BLOOD LOSS: 600 mL. INTRAVENOUS FLUIDS: 1000 mL. URINE OUTPUT: 300 mL of clear urine at the end of the procedure. FINDINGS: Live infant in cephalic presentation. There was thick meconium. Weight and Apgars are in the pediatric record. ANESTHESIA: Epidural. COMPLICATIONS: None. PATHOLOGY: Cord blood, cord gases, and placenta. DISPOSITION: Stable to recovery room. DRAINS: Anna catheter. DESCRIPTION OF PROCEDURE: The patient was taken to the operating room where she was prepped and draped in normal sterile fashion after timeout was called. Pfannenstiel incision was made and carried down to the fascia with a scalpel. Fascia was incised in the midline and extended laterally on both sides. Rectus abdominis muscle was sharply dissected off the fascia. Peritoneum was identified and entered sharply. Once inside the abdomen, an Maycol retractor was placed for retraction. Vesicouterine peritoneum was sharply dissected off the lower segment of the uterus. A low transverse incision was made with a scalpel and extended laterally on both sides with bandage scissors. At this point, meconium was noted. A Victus retractor was used to deliver the 's head. Cord was clamped and cut and the infant handed over to the pediatric team. Cord gases and cord blood were obtained. Placenta was manually removed. Uterus was exteriorized and cleared of all clots and debris. Uterus was closed in 2 layers using Vicryl suture. There was good hemostasis. The uterus and adnexa appeared grossly normal. The vesicouterine peritoneum was approximated using plain suture. Copious amount of irrigation was used to irrigate the abdomen. Once again, hemostasis was obtained. Peritoneum was closed with plain suture and fascia was closed using Vicryl suture. Subcutaneous space was irrigated and approximated with plain suture and the skin was closed with sue. All instruments were removed from the vagina and the abdomen and accounted for x2 including sponges, needles, and retractors. The patient was sent to recovery in stable condition. Job ID: [id number] [facility]
[2021-05-08] MEDS: SIMETHICONE 80 MG CHEW PO SCH ×4 (08:27→21:22)
[2021-05-08] MEDS: PRENATAL VITAMIN 1 TAB PO SCH (08:27)
[2021-05-08] MEDS: FERROUS SULFATE 325 MG TAB PO SCH (08:27)
[2021-05-08] MEDS: DOCUSATE SODIUM 100 MG CAP PO SCH ×2 (08:27→21:23)
--- NOTE | 2021-05-08 09:29 | Obstetrical Progress Note ---
Date of Service May 08, 2021 Assessment & Plan Admission and Anticipated Discharge Date Admission Date: May 06, 2021 Subjective Patient is seen and examined. She feels well, no complaints. Pain is under control with oral meds. Has not been OOB yet Tolerating full liquid diet with out N&V Flatus neg BM neg Bleeding is minimal No fever/ chills/ CP/ SOB/ N&V/ Leg pain Breast feeding without problems Vital Signs Temp Pulse Pulse Resp BP BP Pulse Ox 05/08/21 07:48 36.6 C 83 18 133/75 99 05/08/21 04:05 36.9 C 80 20 124/75 97 05/08/21 03:00 20 97 05/08/21 02:30 20 98 05/08/21 01:30 20 98 05/08/21 00:30 20 100 05/07/21 23:30 36.9 C 82 20 131/80 100 05/07/21 22:30 37.3 C 86 18 140/82 98 05/07/21 22:24 93 H 98 05/07/21 22:19 93 H 97 05/07/21 22:16 90 115/72 05/07/21 22:14 92 H 97 05/07/21 22:09 94 H 97 05/07/21 22:06 106 H 98/56 L 05/07/21 22:05 20 05/07/21 22:04 91 H 96 05/07/21 21:59 91 H 96 05/07/21 21:56 101 H 111/58 L 05/07/21 21:54 94 H 96 05/07/21 21:49 99 H 95 05/07/21 21:46 93 H 112/54 L 05/07/21 21:44 88 95 05/07/21 21:39 92 H 96 05/07/21 21:37 94 H 113/53 L 05/07/21 21:35 20 05/07/21 21:34 100 H 96 05/07/21 21:29 98 H 96 Pulse Ox 05/08/21 07:48 99 05/08/21 04:05 05/08/21 03:00 05/08/21 02:30 05/08/21 01:30 05/08/21 00:30 05/07/21 23:30 05/07/21 22:30 05/07/21 22:24 05/07/21 22:19 05/07/21 22:16 05/07/21 22:14 05/07/21 22:09 05/07/21 22:06 05/07/21 22:05 05/07/21 22:04 05/07/21 21:59 05/07/21 21:56 05/07/21 21:54 05/07/21 21:49 05/07/21 21:46 05/07/21 21:44 05/07/21 21:39 05/07/21 21:37 05/07/21 21:35 05/07/21 21:34 05/07/21 21:29 Lab Results 05/06/21 05/06/21 05/06/21 Range/Units 14:30 14:55 14:55 WBC (4.8-10.8) K/uL RBC (4.2-5.4) M/uL Hgb (12.0-16.0) g/dL Hct (37-47) % MCV (80-100) fL MCH (25-34) pg MCHC (32-36) g/dL RDW Std Deviation (36.4-46.3) fL RDW Coeff of Humberto (11.5-14.5) % Plt Count (130-400) K/uL MPV (7.4-10.4) fL Immature Gran % (Auto) % Neut % (Auto) % Lymph % (Auto) % [place] % (Auto) % Eos % (Auto) % Baso % (Auto) % Neut # (Auto) (1.4-6.5) K/uL Lymph # (Auto) (1.2-3.4) K/uL Amelia # (Auto) (0.11-0.59) K/uL Eos # (Auto) (0-0.5) K/uL Baso # (Auto) (0-0.2) K/uL Immature Gran # (Auto) (0.00-0.02) K/uL Cord ABG pH (7.1-7.38) Cord ABG pCO2 (39.1-73.5) mmHg Cord ABG pO2 (4.1-31.7) mmHg Cord ABG HCO3 (19.7-28.5) mmol/L Cord ABG Base Excess (-9-1.8) mEq/L Cord ABG O2 Sat (<60) % Cord VBG pH (7.20-7.44) Cord VBG pCO2 (30.4-57.2) mmHg Cord VBG pO2 (14.1-43.3) mmHg Cord VBG HCO3 (18.4-26.8) mmol/L Cord VBG Base Excess (-7.7-1.9) mEq/L Cord VBG O2 Sat (<68) % Barometric Pressure mm/Hg Blood Gas Comments Sodium (136-145) mmol/L Potassium (3.5-5.1) mmol/L Chloride (98-107) mmol/L Carbon Dioxide (21-32) mmol/L Anion Gap (3-11) BUN (7-18) mg/dl Creatinine (0.6-1.2) mg/dl Est Cr Clr Drug Dosing ml/min Est GFR ( Amer) ml/min Est GFR (Non-Af Amer) ml/min BUN/Creatinine Ratio (10-20) Glucose (70-99) mg/dl Calcium (8.5-10.1) mg/dl Total Bilirubin (0.2-1) mg/dl AST (15-37) U/L ALT (12-78) U/L Alkaline Phosphatase (45-117) U/L Total Protein (6.4-8.2) gm/dl Albumin (3.4-5.0) gm/dl Globulin (2.5-4.0) gm/dl Albumin/Globulin Ratio (0.9-2) Urine Opiates Screen Neg (Neg) Ur Methadone, Qual Neg (Neg) Urine Barbiturates Neg (Neg) Ur Phencyclidine (PCP) Neg (Neg) U Amphetamin/Meth Scrn Neg (Neg) MDMA (Ecstasy) Screen Neg (Neg) U Benzodiazepines Scrn Neg (Neg) Ur Cocaine Metabolite Neg (Neg) U Marijuana (THC) Screen Neg (Neg) COVID-19 Eval Order Covid19 at [facility] SARS-CoV-2 (PCR) NEGATIVE (Negative) 05/06/21 05/06/21 05/07/21 Range/Units 15:02 15:03 19:11 WBC 13.81 H (4.8-10.8) K/uL RBC 4.01 L (4.2-5.4) M/uL Hgb 11.9 L (12.0-16.0) g/dL Hct 35.6 L (37-47) % MCV 88.8 (80-100) fL MCH 29.7 (25-34) pg MCHC 33.4 (32-36) g/dL RDW Std Deviation 48.3 H (36.4-46.3) fL RDW Coeff of Humberto 14.8 H (11.5-14.5) % Plt Count 264 (130-400) K/uL MPV 10.8 H (7.4-10.4) fL Immature Gran % (Auto) % Neut % (Auto) % Lymph % (Auto) % [place] % (Auto) % Eos % (Auto) % Baso % (Auto) % Neut # (Auto) (1.4-6.5) K/uL Lymph # (Auto) (1.2-3.4) K/uL [place] # (Auto) (0.11-0.59) K/uL Eos # (Auto) (0-0.5) K/uL Baso # (Auto) (0-0.2) K/uL Immature Gran # (Auto) (0.00-0.02) K/uL Cord ABG pH 7.24 (7.1-7.38) Cord ABG pCO2 60 (39.1-73.5) mmHg Cord ABG pO2 < 10 (4.1-31.7) mmHg Cord ABG HCO3 25 (19.7-28.5) mmol/L Cord ABG Base Excess -3.8 (-9-1.8) mEq/L Cord ABG O2 Sat < 60.0 (<60) % Cord VBG pH (7.20-7.44) Cord VBG pCO2 (30.4-57.2) mmHg Cord VBG pO2 (14.1-43.3) mmHg Cord VBG HCO3 (18.4-26.8) mmol/L Cord VBG Base Excess (-7.7-1.9) mEq/L Cord VBG O2 Sat (<68) % Barometric Pressure 736.9 mm/Hg Blood Gas Comments A Sodium 138 (136-145) mmol/L Potassium 4.0 (3.5-5.1) mmol/L Chloride 108 H (98-107) mmol/L Carbon Dioxide 23 (21-32) mmol/L Anion Gap 6.0 (3-11) BUN 10 (7-18) mg/dl Creatinine 0.78 (0.6-1.2) mg/dl Est Cr Clr Drug Dosing 124.1 ml/min Est GFR ( Amer) 121.6 ml/min Est GFR (Non-Af Amer) 104.9 ml/min BUN/Creatinine Ratio 12.3 (10-20) Glucose 84 (70-99) mg/dl Calcium 9.6 (8.5-10.1) mg/dl Total Bilirubin 0.1 L (0.2-1) mg/dl AST 14 L (15-37) U/L ALT 21 (12-78) U/L Alkaline Phosphatase 232 H (45-117) U/L Total Protein 7.0 (6.4-8.2) gm/dl Albumin 2.9 L (3.4-5.0) gm/dl Globulin 4.1 H (2.5-4.0) gm/dl Albumin/Globulin Ratio 0.7 L (0.9-2) Urine Opiates Screen (Neg) Ur Methadone, Qual (Neg) Urine Barbiturates (Neg) Ur Phencyclidine (PCP) (Neg) U Amphetamin/Meth Scrn (Neg) MDMA (Ecstasy) Screen (Neg) U Benzodiazepines Scrn (Neg) Ur Cocaine Metabolite (Neg) U Marijuana (THC) Screen (Neg) COVID-19 Eval Order SARS-CoV-2 (PCR) (Negative) 05/07/21 05/08/21 Range/Units 19:11 06:33 WBC 21.45 H (4.8-10.8) K/uL RBC 3.39 L (4.2-5.4) M/uL Hgb 10.1 L (12.0-16.0) g/dL Hct 30.9 L (37-47) % MCV 91.2 (80-100) fL MCH 29.8 (25-34) pg MCHC 32.7 (32-36) g/dL RDW Std Deviation 50.4 H (36.4-46.3) fL RDW Coeff of Humberto 15.2 H (11.5-14.5) % Plt Count 220 (130-400) K/uL MPV 10.8 H (7.4-10.4) fL Immature Gran % (Auto) 0.4 % Neut % (Auto) 78.4 % Lymph % (Auto) 12.3 % Amelia % (Auto) 8.7 % Eos % (Auto) 0.1 % Baso % (Auto) 0.1 % Neut # (Auto) 16.80 H (1.4-6.5) K/uL Lymph # (Auto) 2.64 (1.2-3.4) K/uL Amelia # (Auto) 1.87 H (0.11-0.59) K/uL Eos # (Auto) 0.03 (0-0.5) K/uL Baso # (Auto) 0.03 (0-0.2) K/uL Immature Gran # (Auto) 0.08 H (0.00-0.02) K/uL Cord ABG pH (7.1-7.38) Cord ABG pCO2 (39.1-73.5) mmHg Cord ABG pO2 (4.1-31.7) mmHg Cord ABG HCO3 (19.7-28.5) mmol/L Cord ABG Base Excess (-9-1.8) mEq/L Cord ABG O2 Sat (<60) % Cord VBG pH 7.34 (7.20-7.44) Cord VBG pCO2 44 (30.4-57.2) mmHg Cord VBG pO2 20 (14.1-43.3) mmHg Cord VBG HCO3 23 (18.4-26.8) mmol/L Cord VBG Base Excess -2.4 (-7.7-1.9) mEq/L Cord VBG O2 Sat < 60.0 (<68) % Barometric Pressure 734.9 mm/Hg Blood Gas Comments INFANT A Sodium (136-145) mmol/L Potassium (3.5-5.1) mmol/L Chloride (98-107) mmol/L Carbon Dioxide (21-32) mmol/L Anion Gap (3-11) BUN (7-18) mg/dl Creatinine (0.6-1.2) mg/dl Est Cr Clr Drug Dosing ml/min Est GFR ( Amer) ml/min Est GFR (Non-Af Amer) ml/min BUN/Creatinine Ratio (10-20) Glucose (70-99) mg/dl Calcium (8.5-10.1) mg/dl Total Bilirubin (0.2-1) mg/dl AST (15-37) U/L ALT (12-78) U/L Alkaline Phosphatase (45-117) U/L Total Protein (6.4-8.2) gm/dl Albumin (3.4-5.0) gm/dl Globulin (2.5-4.0) gm/dl Albumin/Globulin Ratio (0.9-2) Urine Opiates Screen (Neg) Ur Methadone, Qual (Neg) Urine Barbiturates (Neg) Ur Phencyclidine (PCP) (Neg) U Amphetamin/Meth Scrn (Neg) MDMA (Ecstasy) Screen (Neg) U Benzodiazepines Scrn (Neg) Ur Cocaine Metabolite (Neg) U Marijuana (THC) Screen (Neg) COVID-19 Eval Order SARS-CoV-2 (PCR) (Negative) Intake & Output 05/07/21 05/08/21 05/08/21 22:59 06:59 14:59 Intake Total 14.267 / 3123.551 4811 / 1734.433 Output Total 1425 / 3275 700 / 3275 Balance -1410.733 / -1540.567 302 / -1540.567 Intake: IV 14.267 / 5449.144 1705 / 1700.433 Oxytocin 20 units In Lactated 1002 / 1002 Ringer's 1,000 ml @ 125 mls/hr IV .Q8H1M CARLINE Rx#:[id number] Oxytocin 30 units In 500 ml @ 0 14.267 / 35.033 UNITS/HR IV .Q0M PRN Rx#: [id number] Output: Estimated Blood Loss 600 / 600 Urine Amount (Catheter) 825 / 2575 700 / 2575 Anna/[place]welling 825 / 1525 700 / 1525 PE: General: Alert, orientedx3, NAD CVS: S1S2 RRR Lungs; CTAB Abd: soft, NT, ND, BS+, fundus firm, below Umbilicus Incision/ Dressing: Clean, dry, intact Perineum intact, Lochia rubra minimal Ext; NT, no edema, SCD's on AP: 25 yo s/p C Section, pod# 1 VSS Afebrile doing well Continue routine postop care Encourage ambulation, PO intake All questions were answered Results & Data ([facility]) Vital Signs (Past 12 Hours) Vital Signs Temp Pulse Pulse Resp BP BP Pulse Ox 05/08/21 07:48 36.6 C 83 18 133/75 99 05/08/21 04:05 36.9 C 80 20 124/75 97 05/08/21 03:00 20 97 05/08/21 02:30 20 98 05/08/21 01:30 20 98 05/08/21 00:30 20 100 05/07/21 23:30 36.9 C 82 20 131/80 100 05/07/21 22:30 37.3 C 86 18 140/82 98 05/07/21 22:24 93 H 98 05/07/21 22:19 93 H 97 05/07/21 22:16 90 115/72 05/07/21 22:14 92 H 97 05/07/21 22:09 94 H 97 05/07/21 22:06 106 H 98/56 L 05/07/21 22:05 20 05/07/21 22:04 91 H 96 05/07/21 21:59 91 H 96 05/07/21 21:56 101 H 111/58 L 05/07/21 21:54 94 H 96 05/07/21 21:49 99 H 95 05/07/21 21:46 93 H 112/54 L 05/07/21 21:44 88 95 05/07/21 21:39 92 H 96 05/07/21 21:37 94 H 113/53 L 05/07/21 21:35 20 05/07/21 21:34 100 H 96 05/07/21 21:29 98 H 96 Pulse Ox 05/08/21 07:48 99 05/08/21 04:05 05/08/21 03:00 05/08/21 02:30 05/08/21 01:30 05/08/21 00:30 05/07/21 23:30 05/07/21 22:30 05/07/21 22:24 05/07/21 22:19 05/07/21 22:16 05/07/21 22:14 05/07/21 22:09 05/07/21 22:06 05/07/21 22:05 05/07/21 22:04 05/07/21 21:59 05/07/21 21:56 05/07/21 21:54 05/07/21 21:49 05/07/21 21:46 05/07/21 21:44 05/07/21 21:39 05/07/21 21:37 05/07/21 21:35 05/07/21 21:34 05/07/21 21:29
[2021-05-08] MEDS: SERTRALINE HCL 50 MG TABLET PO SCH (10:52)
[2021-05-08] MEDS ORDERED: MEASLES, MUMPS & RUBELLA VIRUS VIAL SQ ONE (11:28)
[2021-05-08] MEDS ORDERED: ONDANSETRON INJ 2 MG/ML 2 ML VIAL IV PRN (13:21)
[2021-05-08] MEDS ORDERED: ZOLPIDEM TARTRATE 5 MG TAB PO PRN (13:21)
[2021-05-08] MEDS ORDERED: diphenhydrAMINE Capsule 25 MG CAP PO PRN (13:21)
[2021-05-08] MEDS ORDERED: PROMETHAZINE HCL 25 MG in SODIUM CHLORIDE 0.9% 50 ML IV PRN (13:21)
[2021-05-08] MEDS ORDERED: diphenhydrAMINE 50 MG/ML VIAL IV PRN (13:21)
[2021-05-08] MEDS: IBUPROFEN 600 MG TAB PO PRN ×2 (17:17→21:27)
[2021-05-08] MEDS: oxyCODONE/ACETAMINOPHEN 5mg/325mg TAB PO PRN ×2 (17:18→21:27)
[2021-05-08] MEDS ORDERED: bisacodyL 5 MG TABEC PO SCH (20:00)
[2021-05-09 07:10] LABS: Basophils # (auto) 0.03 K/uL (0-0.2); Basophils % (auto) 0.2 %; Eosinophils # (auto) 0.36 K/uL (0-0.5); Eosinophils % (auto) 2.1 %; Hematocrit (blood only) 31.7 % (37-47); Hemoglobin 10.1 g/dL (12.0-16.0); Immature Granulocytes # (auto) 0.09 K/uL (0.00-0.02); Immature Granulocytes % (auto) 0.5 %; Lymphocytes # (auto) 3.17 K/uL (1.2-3.4); Lymphocytes % (auto) 18.3 %; Mean Corpuscular Hemoglobin 29.3 pg (25-34); Mean Corpuscular Hgb Conc 31.9 g/dL (32-36); Mean Corpuscular Volume 91.9 fL (80-100); Mean Platelet Volume 10.5 fL (7.4-10.4); Monocytes # (auto) 1.26 K/uL (0.11-0.59); Monocytes % (auto) 7.3 %; Neutrophils # (auto) 12.42 K/uL (1.4-6.5); Neutrophils % (auto) 71.6 %; Platelet Count 233 K/uL (130-400); RDW Coefficient of Variation 15.3 % (11.5-14.5); RDW Standard Deviation 51.3 fL (36.4-46.3); Red Blood Count 3.45 M/uL (4.2-5.4); White Blood Count 17.33 K/uL (4.8-10.8)
[2021-05-09] MEDS: SERTRALINE HCL 50 MG TABLET PO SCH (08:11)
[2021-05-09] MEDS: DOCUSATE SODIUM 100 MG CAP PO SCH ×2 (08:12→21:13)
[2021-05-09] MEDS: PRENATAL VITAMIN 1 TAB PO SCH (08:12)
[2021-05-09] MEDS: SIMETHICONE 80 MG CHEW PO SCH ×4 (08:12→21:13)
[2021-05-09] MEDS: IBUPROFEN 600 MG TAB PO PRN ×4 (08:12→21:13)
[2021-05-09] MEDS: FERROUS SULFATE 325 MG TAB PO SCH (08:12)
[2021-05-09] MEDS: oxyCODONE/ACETAMINOPHEN 5mg/325mg TAB PO PRN ×4 (08:13→21:13)
--- NOTE | 2021-05-09 10:43 | Obstetrical Progress Note ---
Date of Service May 09, 2021 Subjective Ambulation: ambulating normally Voiding: no voiding problems Passing Gas:: Yes Lochia:: Small Feeding Type:: breast feeding Current Pain Level(1-10): 0 doing well POD#2 Physical Exam Constitutional WD/WN, vitals as above comfortable abdomen soft and non-tender fundus firm incision c/d/i for d/c in AM Results & Data ([facility]) Vital Signs (Past 12 Hours) Vital Signs Temp Pulse Resp BP Pulse Ox 05/09/21 07:30 36.8 C 86 20 114/72 98 05/08/21 23:40 36.7 C 87 16 124/73 Laboratory Results Laboratory Results - last 72 hr 05/06/21 05/06/21 05/06/21 14:30 14:55 14:55 WBC RBC Hgb Hct MCV MCH MCHC RDW Std Deviation RDW Coeff of Humberto Plt Count MPV Immature Gran % (Auto) Neut % (Auto) Lymph % (Auto) [place] % (Auto) Eos % (Auto) Baso % (Auto) Neut # (Auto) Lymph # (Auto) [place] # (Auto) Eos # (Auto) Baso # (Auto) Immature Gran # (Auto) Cord ABG pH Cord ABG pCO2 Cord ABG pO2 Cord ABG HCO3 Cord ABG Base Excess Cord ABG O2 Sat Cord VBG pH Cord VBG pCO2 Cord VBG pO2 Cord VBG HCO3 Cord VBG Base Excess Cord VBG O2 Sat Barometric Pressure Blood Gas Comments Sodium Potassium Chloride Carbon Dioxide Anion Gap BUN Creatinine Est Cr Clr Drug Dosing Est GFR ( Amer) Est GFR (Non-Af Amer) BUN/Creatinine Ratio Glucose Calcium Total Bilirubin AST ALT Alkaline Phosphatase Total Protein Albumin Globulin Albumin/Globulin Ratio Urine Opiates Screen Neg Ur Methadone, Qual Neg Urine Barbiturates Neg Ur Phencyclidine (PCP) Neg U Amphetamin/Meth Scrn Neg MDMA (Ecstasy) Screen Neg U Benzodiazepines Scrn Neg Ur Cocaine Metabolite Neg U Marijuana (THC) Screen Neg COVID-19 Eval Order Covid19 at [facility] SARS-CoV-2 (PCR) NEGATIVE 05/06/21 05/06/21 05/07/21 15:02 15:03 19:11 WBC 13.81 H RBC 4.01 L Hgb 11.9 L Hct 35.6 L MCV 88.8 MCH 29.7 MCHC 33.4 RDW Std Deviation 48.3 H RDW Coeff of Humberto 14.8 H Plt Count 264 MPV 10.8 H Immature Gran % (Auto) Neut % (Auto) Lymph % (Auto) [place] % (Auto) Eos % (Auto) Baso % (Auto) Neut # (Auto) Lymph # (Auto) [place] # (Auto) Eos # (Auto) Baso # (Auto) Immature Gran # (Auto) Cord ABG pH 7.24 Cord ABG pCO2 60 Cord ABG pO2 < 10 Cord ABG HCO3 25 Cord ABG Base Excess -3.8 Cord ABG O2 Sat < 60.0 Cord VBG pH Cord VBG pCO2 Cord VBG pO2 Cord VBG HCO3 Cord VBG Base Excess Cord VBG O2 Sat Barometric Pressure 736.9 Blood Gas Comments INFANT A Sodium 138 Potassium 4.0 Chloride 108 H Carbon Dioxide 23 Anion Gap 6.0 BUN 10 Creatinine 0.78 Est Cr Clr Drug Dosing 124.1 Est GFR ( Amer) 121.6 Est GFR (Non-Af Amer) 104.9 BUN/Creatinine Ratio 12.3 Glucose 84 Calcium 9.6 Total Bilirubin 0.1 L AST 14 L ALT 21 Alkaline Phosphatase 232 H Total Protein 7.0 Albumin 2.9 L Globulin 4.1 H Albumin/Globulin Ratio 0.7 L Urine Opiates Screen Ur Methadone, Qual Urine Barbiturates Ur Phencyclidine (PCP) U Amphetamin/Meth Scrn MDMA (Ecstasy) Screen U Benzodiazepines Scrn Ur Cocaine Metabolite U Marijuana (THC) Screen COVID-19 Eval Order SARS-CoV-2 (PCR) 05/07/21 05/08/21 05/09/21 19:11 06:33 06:46 WBC 21.45 H 17.33 H RBC 3.39 L 3.45 L Hgb 10.1 L 10.1 L Hct 30.9 L 31.7 L MCV 91.2 91.9 MCH 29.8 29.3 MCHC 32.7 31.9 L RDW Std Deviation 50.4 H 51.3 H RDW Coeff of Humberto 15.2 H 15.3 H Plt Count 220 233 MPV 10.8 H 10.5 H Immature Gran % (Auto) 0.4 0.5 Neut % (Auto) 78.4 71.6 Lymph % (Auto) 12.3 18.3 [place] % (Auto) 8.7 7.3 Eos % (Auto) 0.1 2.1 Baso % (Auto) 0.1 0.2 Neut # (Auto) 16.80 H 12.42 H Lymph # (Auto) 2.64 3.17 [place] # (Auto) 1.87 H 1.26 H Eos # (Auto) 0.03 0.36 Baso # (Auto) 0.03 0.03 Immature Gran # (Auto) 0.08 H 0.09 H Cord ABG pH Cord ABG pCO2 Cord ABG pO2 Cord ABG HCO3 Cord ABG Base Excess Cord ABG O2 Sat Cord VBG pH 7.34 Cord VBG pCO2 44 Cord VBG pO2 20 Cord VBG HCO3 23 Cord VBG Base Excess -2.4 Cord VBG O2 Sat < 60.0 Barometric Pressure 734.9 Blood Gas Comments INFANT A Sodium Potassium Chloride Carbon Dioxide Anion Gap BUN Creatinine Est Cr Clr Drug Dosing Est GFR ( Amer) Est GFR (Non-Af Amer) BUN/Creatinine Ratio Glucose Calcium Total Bilirubin AST ALT Alkaline Phosphatase Total Protein Albumin Globulin Albumin/Globulin Ratio Urine Opiates Screen Ur Methadone, Qual Urine Barbiturates Ur Phencyclidine (PCP) U Amphetamin/Meth Scrn MDMA (Ecstasy) Screen U Benzodiazepines Scrn Ur Cocaine Metabolite U Marijuana (THC) Screen COVID-19 Eval Order SARS-CoV-2 (PCR)
[2021-05-09] MEDS ORDERED: bisacodyL 10 MG SUPP PR PRN (20:14)
[2021-05-10] MEDS: IBUPROFEN 600 MG TAB PO PRN ×3 (01:23→10:30)
[2021-05-10] MEDS: oxyCODONE/ACETAMINOPHEN 5mg/325mg TAB PO PRN ×4 (01:24→15:23)
--- NOTE | 2021-05-10 08:42 | Obstetrical Progress Note ---
Date of Service May 10, 2021 Assessment & Plan Admission and Anticipated Discharge Date Admission Date: May 06, 2021 Subjective Patient is seen and examined. She feels well, no complaints other than ringing in ears Pain is under control with oral meds. Ambulating without dizziness Voiding without difficulty Tolerating regular diet with out N&V Flatus + BM + Bleeding is minimal No fever/ chills/ CP/ SOB/ N&V/ Leg pain Breast feeding without problems Vital Signs Temp Pulse Resp BP Pulse Ox 05/09/21 23:20 36.6 C 76 18 116/75 05/09/21 21:10 36.6 C 78 18 129/78 98 05/09/21 17:28 121/78 05/09/21 15:49 36.5 C 83 18 143/83 H 97 Lab Results 05/06/21 05/06/21 05/06/21 Range/Units 14:30 14:55 14:55 WBC (4.8-10.8) K/uL RBC (4.2-5.4) M/uL Hgb (12.0-16.0) g/dL Hct (37-47) % MCV (80-100) fL MCH (25-34) pg MCHC (32-36) g/dL RDW Std Deviation (36.4-46.3) fL RDW Coeff of Humberto (11.5-14.5) % Plt Count (130-400) K/uL MPV (7.4-10.4) fL Immature Gran % (Auto) % Neut % (Auto) % Lymph % (Auto) % [place] % (Auto) % Eos % (Auto) % Baso % (Auto) % Neut # (Auto) (1.4-6.5) K/uL Lymph # (Auto) (1.2-3.4) K/uL [place] # (Auto) (0.11-0.59) K/uL Eos # (Auto) (0-0.5) K/uL Baso # (Auto) (0-0.2) K/uL Immature Gran # (Auto) (0.00-0.02) K/uL Cord ABG pH (7.1-7.38) Cord ABG pCO2 (39.1-73.5) mmHg Cord ABG pO2 (4.1-31.7) mmHg Cord ABG HCO3 (19.7-28.5) mmol/L Cord ABG Base Excess (-9-1.8) mEq/L Cord ABG O2 Sat (<60) % Cord VBG pH (7.20-7.44) Cord VBG pCO2 (30.4-57.2) mmHg Cord VBG pO2 (14.1-43.3) mmHg Cord VBG HCO3 (18.4-26.8) mmol/L Cord VBG Base Excess (-7.7-1.9) mEq/L Cord VBG O2 Sat (<68) % Barometric Pressure mm/Hg Blood Gas Comments Sodium (136-145) mmol/L Potassium (3.5-5.1) mmol/L Chloride (98-107) mmol/L Carbon Dioxide (21-32) mmol/L Anion Gap (3-11) BUN (7-18) mg/dl Creatinine (0.6-1.2) mg/dl Est Cr Clr Drug Dosing ml/min Est GFR ( Amer) ml/min Est GFR (Non-Af Amer) ml/min BUN/Creatinine Ratio (10-20) Glucose (70-99) mg/dl Calcium (8.5-10.1) mg/dl Total Bilirubin (0.2-1) mg/dl AST (15-37) U/L ALT (12-78) U/L Alkaline Phosphatase (45-117) U/L Total Protein (6.4-8.2) gm/dl Albumin (3.4-5.0) gm/dl Globulin (2.5-4.0) gm/dl Albumin/Globulin Ratio (0.9-2) Urine Opiates Screen Neg (Neg) Ur Methadone, Qual Neg (Neg) Urine Barbiturates Neg (Neg) Ur Phencyclidine (PCP) Neg (Neg) U Amphetamin/Meth Scrn Neg (Neg) MDMA (Ecstasy) Screen Neg (Neg) U Benzodiazepines Scrn Neg (Neg) Ur Cocaine Metabolite Neg (Neg) U Marijuana (THC) Screen Neg (Neg) COVID-19 Eval Order Covid19 at [facility] SARS-CoV-2 (PCR) NEGATIVE (Negative) 05/06/21 05/06/21 05/07/21 Range/Units 15:02 15:03 19:11 WBC 13.81 H (4.8-10.8) K/uL RBC 4.01 L (4.2-5.4) M/uL Hgb 11.9 L (12.0-16.0) g/dL Hct 35.6 L (37-47) % MCV 88.8 (80-100) fL MCH 29.7 (25-34) pg MCHC 33.4 (32-36) g/dL RDW Std Deviation 48.3 H (36.4-46.3) fL RDW Coeff of Humberto 14.8 H (11.5-14.5) % Plt Count 264 (130-400) K/uL MPV 10.8 H (7.4-10.4) fL Immature Gran % (Auto) % Neut % (Auto) % Lymph % (Auto) % [place] % (Auto) % Eos % (Auto) % Baso % (Auto) % Neut # (Auto) (1.4-6.5) K/uL Lymph # (Auto) (1.2-3.4) K/uL [place] # (Auto) (0.11-0.59) K/uL Eos # (Auto) (0-0.5) K/uL Baso # (Auto) (0-0.2) K/uL Immature Gran # (Auto) (0.00-0.02) K/uL Cord ABG pH 7.24 (7.1-7.38) Cord ABG pCO2 60 (39.1-73.5) mmHg Cord ABG pO2 < 10 (4.1-31.7) mmHg Cord ABG HCO3 25 (19.7-28.5) mmol/L Cord ABG Base Excess -3.8 (-9-1.8) mEq/L Cord ABG O2 Sat < 60.0 (<60) % Cord VBG pH (7.20-7.44) Cord VBG pCO2 (30.4-57.2) mmHg Cord VBG pO2 (14.1-43.3) mmHg Cord VBG HCO3 (18.4-26.8) mmol/L Cord VBG Base Excess (-7.7-1.9) mEq/L Cord VBG O2 Sat (<68) % Barometric Pressure 736.9 mm/Hg Blood Gas Comments A Sodium 138 (136-145) mmol/L Potassium 4.0 (3.5-5.1) mmol/L Chloride 108 H (98-107) mmol/L Carbon Dioxide 23 (21-32) mmol/L Anion Gap 6.0 (3-11) BUN 10 (7-18) mg/dl Creatinine 0.78 (0.6-1.2) mg/dl Est Cr Clr Drug Dosing 124.1 ml/min Est GFR ( Amer) 121.6 ml/min Est GFR (Non-Af Amer) 104.9 ml/min BUN/Creatinine Ratio 12.3 (10-20) Glucose 84 (70-99) mg/dl Calcium 9.6 (8.5-10.1) mg/dl Total Bilirubin 0.1 L (0.2-1) mg/dl AST 14 L (15-37) U/L ALT 21 (12-78) U/L Alkaline Phosphatase 232 H (45-117) U/L Total Protein 7.0 (6.4-8.2) gm/dl Albumin 2.9 L (3.4-5.0) gm/dl Globulin 4.1 H (2.5-4.0) gm/dl Albumin/Globulin Ratio 0.7 L (0.9-2) Urine Opiates Screen (Neg) Ur Methadone, Qual (Neg) Urine Barbiturates (Neg) Ur Phencyclidine (PCP) (Neg) U Amphetamin/Meth Scrn (Neg) MDMA (Ecstasy) Screen (Neg) U Benzodiazepines Scrn (Neg) Ur Cocaine Metabolite (Neg) U Marijuana (THC) Screen (Neg) COVID-19 Eval Order SARS-CoV-2 (PCR) (Negative) 05/07/21 05/08/21 05/09/21 Range/Units 19:11 06:33 06:46 WBC 21.45 H 17.33 H (4.8-10.8) K/uL RBC 3.39 L 3.45 L (4.2-5.4) M/uL Hgb 10.1 L 10.1 L (12.0-16.0) g/dL Hct 30.9 L 31.7 L (37-47) % MCV 91.2 91.9 (80-100) fL MCH 29.8 29.3 (25-34) pg MCHC 32.7 31.9 L (32-36) g/dL RDW Std Deviation 50.4 H 51.3 H (36.4-46.3) fL RDW Coeff of Humberto 15.2 H 15.3 H (11.5-14.5) % Plt Count 220 233 (130-400) K/uL MPV 10.8 H 10.5 H (7.4-10.4) fL Immature Gran % (Auto) 0.4 0.5 % Neut % (Auto) 78.4 71.6 % Lymph % (Auto) 12.3 18.3 % [place] % (Auto) 8.7 7.3 % Eos % (Auto) 0.1 2.1 % Baso % (Auto) 0.1 0.2 % Neut # (Auto) 16.80 H 12.42 H (1.4-6.5) K/uL Lymph # (Auto) 2.64 3.17 (1.2-3.4) K/uL [place] # (Auto) 1.87 H 1.26 H (0.11-0.59) K/uL Eos # (Auto) 0.03 0.36 (0-0.5) K/uL Baso # (Auto) 0.03 0.03 (0-0.2) K/uL Immature Gran # (Auto) 0.08 H 0.09 H (0.00-0.02) K/uL Cord ABG pH (7.1-7.38) Cord ABG pCO2 (39.1-73.5) mmHg Cord ABG pO2 (4.1-31.7) mmHg Cord ABG HCO3 (19.7-28.5) mmol/L Cord ABG Base Excess (-9-1.8) mEq/L Cord ABG O2 Sat (<60) % Cord VBG pH 7.34 (7.20-7.44) Cord VBG pCO2 44 (30.4-57.2) mmHg Cord VBG pO2 20 (14.1-43.3) mmHg Cord VBG HCO3 23 (18.4-26.8) mmol/L Cord VBG Base Excess -2.4 (-7.7-1.9) mEq/L Cord VBG O2 Sat < 60.0 (<68) % Barometric Pressure 734.9 mm/Hg Blood Gas Comments A Sodium (136-145) mmol/L Potassium (3.5-5.1) mmol/L Chloride (98-107) mmol/L Carbon Dioxide (21-32) mmol/L Anion Gap (3-11) BUN (7-18) mg/dl Creatinine (0.6-1.2) mg/dl Est Cr Clr Drug Dosing ml/min Est GFR ( Amer) ml/min Est GFR (Non-Af Amer) ml/min BUN/Creatinine Ratio (10-20) Glucose (70-99) mg/dl Calcium (8.5-10.1) mg/dl Total Bilirubin (0.2-1) mg/dl AST (15-37) U/L ALT (12-78) U/L Alkaline Phosphatase (45-117) U/L Total Protein (6.4-8.2) gm/dl Albumin (3.4-5.0) gm/dl Globulin (2.5-4.0) gm/dl Albumin/Globulin Ratio (0.9-2) Urine Opiates Screen (Neg) Ur Methadone, Qual (Neg) Urine Barbiturates (Neg) Ur Phencyclidine (PCP) (Neg) U Amphetamin/Meth Scrn (Neg) MDMA (Ecstasy) Screen (Neg) U Benzodiazepines Scrn (Neg) Ur Cocaine Metabolite (Neg) U Marijuana (THC) Screen (Neg) COVID-19 Eval Order SARS-CoV-2 (PCR) (Negative) PE: General: Alert, orientedx3, NAD CVS: S1S2 RRR Lungs; CTAB Abd: soft, NT, ND, BS+, fundus firm, below Umbilicus Incision: Clean, dry, intact Perineum intact, Lochia rubra minimal Ext; NT, no edema AP: 25 yo s/p C Section, pod# 3 VSS Afebrile doing well Continue routine postop care Encourage ambulation, PO intake All questions were answered Consult hospitalist for ringing ears D/C home , f/u in office Results & Data ([facility]) Vital Signs (Past 12 Hours) Vital Signs Temp Pulse Resp BP Pulse Ox 05/09/21 23:20 36.6 C 76 18 116/75 05/09/21 21:10 36.6 C 78 18 129/78 98
[2021-05-10] MEDS: SERTRALINE HCL 50 MG TABLET PO SCH (08:51)
[2021-05-10] MEDS: DOCUSATE SODIUM 100 MG CAP PO SCH (08:59)
[2021-05-10] MEDS: SIMETHICONE 80 MG CHEW PO SCH ×2 (09:00→13:45)
[2021-05-10] MEDS: FERROUS SULFATE 325 MG TAB PO SCH (09:01)
[2021-05-10] MEDS: PRENATAL VITAMIN 1 TAB PO SCH (09:02)
[2021-05-10 09:04] LABS: Hematocrit (blood only) 28.9 % (37-47); Hemoglobin 9.5 g/dL (12.0-16.0); Mean Corpuscular Hemoglobin 29.4 pg (25-34); Mean Corpuscular Hgb Conc 32.9 g/dL (32-36); Mean Corpuscular Volume 89.5 fL (80-100); Mean Platelet Volume 10.4 fL (7.4-10.4); Platelet Count 227 K/uL (130-400); RDW Coefficient of Variation 14.9 % (11.5-14.5); RDW Standard Deviation 48.7 fL (36.4-46.3); Red Blood Count 3.23 M/uL (4.2-5.4); White Blood Count 11.83 K/uL (4.8-10.8)
[2021-05-10 10:21] LABS: Basophils # (auto) 0.02 K/uL (0-0.2); Basophils % (auto) 0.2 %; Eosinophils # (auto) 0.43 K/uL (0-0.5); Eosinophils % (auto) 3.6 %; Immature Granulocytes # (auto) 0.05 K/uL (0.00-0.02); Immature Granulocytes % (auto) 0.4 %; Lymphocytes # (auto) 3.63 K/uL (1.2-3.4); Lymphocytes % (auto) 30.7 %; Monocytes % (auto) 5.9 %; Neutrophils % (auto) 59.2 %
--- NOTE | 2021-05-10 13:38 | Hospitalist Consultation ---
Date of Consultation May 10, 2021 Assessment & Plan (1) Tinnitus: Bilateral low hum that comes and goes through the day- not associated with any hearing loss or vertigo - not infectious appearing, WBC count on admission is down-trending and no fevers recorded- don't feel at this time infectious etiology - No hearing loss - No post spinal headache reported- tinnitus is possible post epidural - Medication associated tinnitus is leading cause at this time from medical standpoint- Wean down frequency of Motrin #1- continue pain control with acetaminophen as primary, #2 cause could be Zoloft related- if recently started and peak effects are now present- this may be associated with this as well. - White noise may assist with taking focus off tinnitus - May also be stress related- follow - Follow up with PCP/OBGYN or ENT as appropriate for resolution or continuing of symptoms. Supervising Physician Co-Signing Physician Notes Attending Attestation & Consult Note - Pt seen/examined, chart reviewed, care plan d/w BITA Mendez. I agree w/ the arita components of his documentation. 25yo female s/p on 05/08/21 with delivery of healthy baby boy with tinnitus x 2 days. Bilateral. No hearing loss, vertigo, motor or sensory loss, headache, or ataxia. Started on zoloft ~2 weeks ago. Taking motrin post-op for pelvic pain. PMH/PSH/allergies/meds/sochx/famhx - reviewed VSS, afebril gen - NAD, pleasant eyes - EOMI, no nystagmus ears - hearing intact b/l and symmetric heart - RRR, s1 s2, 1/6 ANA LSB lungs - CTA b/l abd - soft NT BS+ ext - 1+ edema b/l, pulses 2+ b/l neuro - strength 5/5 x 4 exts; no facial droop; finger/nose/finger maneuver b/l without dysmetria A/P: b/l tinnitus in the absence of other neurological symptoms or signs. Agree with Mr Mendez that this may be due to medication side effect. Motrin vs zoloft. Plan - d/c motrin observe for persistent symptoms if tinnitus persists despite stoppage of motrin then the symptom may be from zoloft f/u with PCP for the tinnitus in meantime - distracting background noise (fan, noise maker) recommended instructions added to "healthcare management consultant d/c instructions" Thank you for this consult. Isak Segundo MD History of Present Illness Reason for Consultation: tinnitus Requesting Physician: Rolanda López MD Attending Physician: Rolanda López MD History of Present Illness 25 YOF who is POD 1 from delivery. She has experiencing a humming/ringing in her ears, and hospitalist service was consulted. Patient with past medical history of; anxiety(on zoloft) smoker- quit in December, use of meth reports quitting in December, and obesity. Patient states that the ringing in her ears started 2 days ago following her . Also noted that she had epidural. The sound in her ears is described as a low hum/fuzziness that occurs bilaterally and increased when it is present when she is talking. She has not experienced this in the past at any time that she can recall. This is not constant and she is unaware of triggering events, or precursors and comes and goes through out the day. This is not associated with any pain or hearing loss, there is no vertiginousness symptoms. She denies any sinus congestion or post nasal drainage. See physical exam below, but there are no infectious findings to either ear canal- TM is grossman bilaterally with good cone of light. There are no enlarged lymph nodes to auricular, submandibular, cervical or anterior cervical chains. She has been ambulating without dizziness. Medication list reviewed for possible offending agents. Motrin- which she has been taking she reports frequently since her - MAR review confirms about every 4-5 hours of dosing. She is on Zoloft which she states has been on for a couple weeks. If this is her peak time for Zoloft effect, this may also be cause. She has not taken any of the Ambien for sleeping. Recommendations: No acute infectious or neurological focus. - DDX: Medication related vs. epidural related vs. stress vs. other - Likely medication associated at this time. Would decrease amount of Motrin use/frequency. If symptoms persist then may be related to her Zoloft. Follow up with PCP as outpatient for symptomatology. If worsens or continues may benefit from seeing ENT. - She did not exhibit any reports of headache following her epidural removal but possible relation to tinnitus - Recommend white noise to reduce the focus of tinnitus - Relaxation and stress reduction may also be beneficial Thank you for this consultation: Allergies Allergy/AdvReac Type Severity Reaction Status Date / Time No Known Allergies Allergy Unverified 06/08/10 13:08 Home Medications Medication Instructions Recorded Confirmed Type ferrous sulfate 325 mg (65 mg 325 mg PO DAILY 05/06/21 05/06/21 History iron) tablet (Iron (ferrous sulfate)) prenat.vits,rboert,msy-kkhs-scexj 1 tab PO DAILY 05/06/21 05/06/21 History sertraline 50 mg tablet (Zoloft) 50 mg PO DAILY 05/06/21 05/06/21 History ibuprofen 600 mg tablet 600 mg PO Q6 #40 tab 05/10/21 Rx oxycodone-acetaminophen 5 mg-325 1 - 2 tab PO Q4H #20 tab 05/10/21 Rx mg tablet (Percocet) vits no.124-ferrous fum 1 tab PO DAILY@08 #90 tab 05/10/21 Rx 27 mg iron-folic acid 800 mcg tablet ( Vitamin) Patient History Medical History Anemia (~02/08/21) Anxiety Drug abuse during (~01/01/21) Pt. states she stopped drug use in December 2020. (Meth) Obesity Smoking Pt. states she stopped smiking in December 2020 UTI (urinary tract infection) during (~12/13/20) Surgical History H/O wisdom tooth extraction Family History Aunt Breast cancer Social History Smoking Status: Former smoker Age Started Using Tobacco: 22; Age Quit Using Tobacco: 25; Second Hand Exposure: No; Do You Dip or Chew Tobacco: No; Tobacco Cessation Education Requested by Patient: No Hx Alcohol Use: No Hx Substance Use: Yes Non-Prescribed Medications: Methamphetamines Last Used Substance Other:: 12-10-20 Preferred Language: Maltese Communication Ability: Effective Visual Impairment: No Limitations Hearing Ability: Normal 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 Hand Required: No Beliefs That Will Affect Care: None marital status: Single Current Living Situation: Significant Other Current Living Situation Comment: Lives with boyfriend and cat current occupational status: employed 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 [employer] Other Information That Helps Us Care for You: No Feels Safe at Home: Yes Safety Concerns: Feels Safe At This Time caffeine: Yes (Coffee) Dental Care, Regularly: No Seatbelt Use: always Do you think of yourself as: straight/heterosexual Gender Identity: Female Assistive Devices: None Review of Systems Review of Systems: REVIEW OF SYSTEMS: Constitutional: No fever, sweats or chills Eyes: No diplopia, no worsening or blurred vision ENT: (+) low humming bilateral in ears, normal hearing, no trouble swallowing Respiratory: No cough, sputum, dyspnea at rest or on exertion Cardiovascular: No chest pain, tightness or palpitations Abdomen: No pain, nausea, vomiting, diarrhea or constipation Musculoskeletal: No joint pain, calf pain, swelling Neurologic: No weakness, numbness/tingling, or balance problems Psychiatric: (+) anxiety or depression Skin: No rash or itch Physical Exam Physical Exam: PHYSICAL EXAM: General: awake, alert, no apparent distress Head: Normocephalic, atraumatic ENT: PERRLA, EOMI, no nystagmus, normal TM grossman in color, no bulging, good cone of light, no pharyngeal exudate, no pain with percussion to sinuses, no cobblestoning of hard/soft palate, mucous membranes moist, no lymphadenopathy to cervical/anterior cervical, submandibular, or auricular. Neuro: AAO x 3, speech clear and appropriate, strength intact bilaterally 5/5, sensation intact and equal all extremities and dermatomes, no pronator drift Chest: equal rise and fall of the chest, no accessory muscle use, no heaves or thrills, Clear to auscultation, on room air, Cardiac: Regular rate and rhythm, S1S2, skin warm dry, cap refill <3 seconds, peripheral pulses +2 no JVD, no murmur, trace lower extremity edema GI: NABS x 4 quadrants, soft, nontender to palpation, no rebound, guarding or tenderness : Spontaneously voiding, no pain, no CVA tenderness, Extremities: Normal inspection, no peripheral edema or erythema, calfs nontender to palpation Psych: Normal mood and affect Skin: no rash or erythema Results & Data Results & Data ([facility]) Vital Signs (Past 12 Hours) Vital Signs Temp Pulse Resp BP Pulse Ox 05/10/21 08:41 36.9 C 80 18 126/81 90 Laboratory Results Abnormal lab results 05/10/21 Range/Units 08:47 WBC 11.83 H (4.8-10.8) K/uL RBC 3.23 L (4.2-5.4) M/uL Hgb 9.5 L (12.0-16.0) g/dL Hct 28.9 L (37-47) % RDW Std Deviation 48.7 H (36.4-46.3) fL RDW Coeff of Humberto 14.9 H (11.5-14.5) % Neut # (Auto) 7.00 H (1.4-6.5) K/uL Lymph # (Auto) 3.63 H (1.2-3.4) K/uL [place] # (Auto) 0.70 H (0.11-0.59) K/uL Immature Gran # (Auto) 0.05 H (0.00-0.02) K/uL Medications Administered Home Medications ferrous sulfate 325 mg (65 mg iron) tablet (Iron (ferrous sulfate)) 325 mg PO D AILY 05/06/21 [History Confirmed 05/06/21] prenat.vits,robert,kto-yscn-rrzud 1 tab PO DAILY 05/06/21 [History Confirmed 05/06/21] sertraline 50 mg tablet (Zoloft) 50 mg PO DAILY 05/06/21 [History Confirmed 05/06/21] ibuprofen 600 mg tablet 600 mg PO Q6 #40 tab 05/10/21 [Rx] oxycodone-acetaminophen 5 mg-325 mg tablet (Percocet) 1 - 2 tab PO Q4H #20 tab 05/10/21 [Rx] vits no.124-ferrous fum 27 mg iron-folic acid 800 mcg tablet ( Vitamin) 1 tab PO DAILY@08 #90 tab 05/10/21 [Rx] Active Medications Benzocaine (Benzocaine 20% Aer Spr 82.5 Gm Can) 1 appln EXT UD PRN PRN Reason: use on skin as needed Stop: 06/06/21 20:13 Bisacodyl (Bisacodyl 10 Mg Supp) 10 mg MI PRN PRN PRN Reason: Constipation Stop: 06/08/21 20:13 Butorphanol Tartrate (Butorphanol Tartrate 1 Mg/Ml Vial) 1 mg IV Q3HWA PRN PRN Reason: Pain Stop: 06/05/21 22:46 Last Admin: 05/07/21 01:43 Dose: 1 mg Documented by: Cocaine HCl (Supercream 0.870% 15 Gm Jar) 1 gm EXT UD PRN PRN Reason: hemmorrhoidal inflammation Stop: 05/21/21 20:13 Diphenhydramine HCl (Diphenhydramine Capsule 25 Mg Cap) 25 mg PO QID PRN PRN Reason: Itching Stop: 06/07/21 13:20 Diphenhydramine HCl (Diphenhydramine 50 Mg/Ml Vial) 25 mg IV QID PRN PRN Reason: Itching Stop: 06/07/21 13:20 Docusate Sodium (Docusate Sodium 100 Mg Cap) 100 mg PO DAILY@ CARLINE Stop: 06/06/21 20:59 Last Admin: 05/10/21 08:59 Dose: 100 mg Documented by: Ferrous Sulfate (Ferrous Sulfate 325 Mg Tab) 325 mg PO DAILY@08 CARLINE Stop: 06/07/21 07:59 Last Admin: 05/10/21 09:01 Dose: 325 mg Documented by: Hydrocortisone (Hydrocortisone Acetate 25 Mg Supp) 25 mg MI BID PRN PRN Reason: Hemorrhoids Stop: 06/06/21 20:13 Oxytocin (Pitocin) 30 units in 500 mls @ 333.333 mls/hr IV .Q1H30M PRN; Protocol PRN Reason: Bleeding Control Stop: 06/05/21 14:42 Lactated Ringer's (Lr) 1,000 mls @ 125 mls/hr IV .Q8H CARLINE Stop: 06/06/21 19:29 Lactated Ringer's (Lr) 1,000 mls @ 125 mls/hr IV .Q8H CARLINE Stop: 06/06/21 20:14 Promethazine HCl 25 mg/ Sodium (Chloride) 51 mls @ 204 mls/hr IV Q4H PRN PRN Reason: Nausea And Vomiting Stop: 06/07/21 13:20 Oxytocin 20 units/ Lactated (Ringer's) 1,002 mls @ 125 mls/hr IV .Q8H1M CARLINE Stop: 06/06/21 20:14 Last Infusion: 05/08/21 13:26 Dose: Infused Documented by: Ibuprofen (Ibuprofen 600 Mg Tab) 600 mg PO Q4H PRN PRN Reason: Pain Stop: 06/06/21 20:13 Last Admin: 05/10/21 10:30 Dose: 600 mg Documented by: Magnesium Hydroxide (Magnesium Hydroxide Susp 30 Ml Udc) 30 ml PO HS PRN PRN Reason: Constipation Stop: 06/06/21 20:13 Ondansetron HCl (Ondansetron Inj 2 Mg/Ml 2 Ml Vial) 4 mg IV Q4H PRN PRN Reason: Nausea And Vomiting Stop: 06/07/21 13:20 Oxycodone/Acetaminophen (Oxycodone/Acetaminophen 5mg/325mg Tab) 1 - 2 tab PO Q4H PRN PRN Reason: Pain Stop: 05/22/21 13:20 Last Admin: 05/10/21 10:31 Dose: 1 tab Documented by: Yinaat Multivit/Mulat/Iron/Folic Ac ( Vitamin 1 Tab) 1 tab PO DAILY@08 [facility] Stop: 06/07/21 07:59 Last Admin: 05/10/21 09:02 Dose: 1 tab Documented by: Sennosides (Senna 8.6 Mg Tab) 17.2 mg PO HS PRN PRN Reason: Constipation Stop: 06/06/21 20:13 Sertraline HCl (Sertraline Hcl 50 Mg Tablet) 50 mg PO QAM [facility] Stop: 06/07/21 09:29 Last Admin: 05/10/21 08:51 Dose: 50 mg Documented by: Simethicone (Simethicone 80 Mg Chew) 80 mg PO DAILY@08,,, [facility] Stop: 06/06/21 20:59 Last Admin: 05/10/21 13:45 Dose: 80 mg Documented by: Zolpidem Tartrate (Zolpidem Tartrate 5 Mg Tab) 5 mg PO HS PRN PRN Reason: Sleep Stop: 06/07/21 13:20 ECG Additional Comments: NONE for review nor indicated PG Care Time/CCT Total # of Minutes Spent Total Time Spent with Patient: Total time spent is greater than 50% in coordination of care (as documented) at patient's floor/unit and/or counseling patient: Coding Level of Care Code 77739 Inpt Consult Level 3 Diagnoses Tinnitus H93.19
--- NOTE | 2021-05-14 22:35 | Discharge Summary (DS) ---
DATE OF ADMISSION: 05/06/2021 DATE OF DISCHARGE: 05/10/2021 CHIEF COMPLAINT: 1. at term. 2. Oligohydramnios. 3. tachycardia. 4. category 3 strip. HISTORY OF PRESENT ILLNESS: This is a 25-year-old G1, P0 who was admitted on labor and delivery on 07/06/2020 for oligohydramnios. The patient had been seen in the office as part of her routine [facility] care. She was 40 weeks and 4 days and was sent to labor and delivery after amniotic fluid check i n the office showed MEGHAN of 4.0. She was admitted for augmentation of labor. She received cervical r ipening and underwent artificial rupture of membranes. The patient finally got dilated to 10 cm. Ho wever, once she started pushing, she started to experience late decelerations and tachyca rdia. Several attempts were made to resuscitate the baby. However, the tachycardia and decele rations kept recurring. Decision was therefore made to perform section. Details of surgery and the infant's information are in the respective records. The patient did well in surgery and pos top met all milestones. She was discharged home safely on 05/10/2021. PAST MEDICAL HISTORY: History of anxiety, history of drug abuse, obesity, and smoking. PAST SURGICAL HISTORY: Dental procedures. SOCIAL HISTORY: The patient denies drug, tobacco or alcohol use in this . ALLERGIES: No known drug allergies. REVIEW OF SYSTEMS: Negative except as dictated in the HPI. LABORATORY DATA: On 05/10/2021 showed hemoglobin of 9.5, hematocrit of 28.9, platelets of 227. PHYSICAL EXAMINATION: VITAL SIGNS: Blood pressure 126/81, pulse 80, respirations 18, temperature 36.9 on 05/10/2021. GENERAL: Well-developed, well-nourished white female in no acute distress. HEART: S1 and S2, regular rhythm and rate. LUNGS: Clear to auscultation bilaterally. ABDOMEN: Nontender, nondistended, positive bowel sounds. Incision clean, dry and intact. EXTREMITIES: No cyanosis or clubbing. +1 edema. OPERATION: Primary section. DISCHARGE DIAGNOSIS: Postoperative after a primary section. PLAN ON DISCHARGE: The patient is discharged home with instructions regarding activity, diet, and fo [place] [facility] appointment. Job ID: [id number]
== END 2021-05-10 16:30 | disposition home or self-care (01) | DRG 787 ==
LOC: OPB 13:18 → 4S1 13:21 → 4S2 05-07 22:30